=== PATIENT | male | born 1955 | race Caucasian/White ===

== ENCOUNTER 2018-07-29 13:17 | Outpatient (CLI) | payer BC, SELFPAY ==
[2018-07-29 14:37] LABS: ALT 43 U/L (12-78); AST 18 U/L (15-37); Albumin 3.9 g/dL (3.4-5.0); Alkaline Phosphatase 100 U/L (46-116); Anion Gap 8.7 mmol/L (3-11); BUN 29 mg/dL (7-18); Bilirubin, Total 0.3 mg/dL (0.2-1.0); CO2 29.3 mmol/L (21.0-32.0); CREATININE 1.04 mg/dL (0.70-1.30); Chloride 103 mmol/L (98-107); Glucose 92 mg/dL (70-100); Potassium 4.1 mmol/L (3.5-5.1); Sodium 141 mmol/L (136-145); Total Protein 7.1 g/dL (6.4-8.2)
== END 2018-07-29 13:37 ==
PROVIDERS: PCP Internal Medicine; Visit Provider Internal Medicine
DX: Z79.899 Other long term (current) drug therapy (principal)
CPT/HCPCS: 36415; 80053

== ENCOUNTER 2019-07-31 07:49 | Outpatient (CLI) | payer BC, SELFPAY ==
[2019-07-31 08:30] LABS: Abs Immature Grans 0.05 k/cumm (0.0-0.09); Absolute Basophil Count 0.04 k/cumm (0.0-0.2); Absolute Eosinophil Count 0.13 k/cumm (0.0-0.7); Absolute Lymphocyte Count 1.82 k/cumm (1.2-3.4); Absolute Neutrophil Count 4.01 k/cumm (1.2-6.7); Basophils % 0.6; HCT 45.3 % (40.0-50.0); HGB 15.3 g/dL (13.5-17.5); Immature Grans % 0.8; Lymphocytes % 27.4; Mean Corp. HGB Concentration 33.8 g/dL (32.0-36.0); Mean Corpuscular Hemoglobin 31.5 pg (27.0-33.0); Mean Corpuscular Volume 93.4 fL (80-95); Mean Platelet Volume 10.3 fL (8.0-11.0); Neutrophils % 60.2; Platelet Count 222 x1000/uL (130-400); RBC 4.85 m/cumm (4.50-6.00); RBC Distribution Width 12.9 % (11.8-14.1); White Blood Cell Count 6.65 k/cumm (4.4-10.8)
[2019-07-31 09:31] LABS: ALT 39 U/L (16-63); AST 16 U/L (15-37); Albumin 4.3 g/dL (3.4-5.0); Alkaline Phosphatase 77 U/L (46-116); Anion Gap 9.8 mmol/L (3-11); BUN 28 mg/dL (7-18); Bilirubin, Total 0.5 mg/dL (0.2-1.0); CO2 29.2 mmol/L (21.0-32.0); CREATININE 1.21 mg/dL (0.70-1.30); Calcium 9.3 mg/dL (8.5-10.1); Calculated LDL 116 mg/dL; Chloride 103 mmol/L (98-107); Cholesterol 188 mg/dL (50-200); Glucose 100 mg/dL (70-100); HDL Cholesterol 53 mg/dL (40-60); Potassium 4.6 mmol/L (3.5-5.1); Sodium 142 mmol/L (136-145); Total Protein 7.4 g/dL (6.4-8.2); Triglyceride 99 mg/dL (30-150)
== END 2019-07-31 08:09 ==
PROVIDERS: PCP Internal Medicine; Visit Provider Internal Medicine
DX: I10 Essential (primary) hypertension (principal); Z12.5 Encounter for screening for malignant neoplasm of prostate
CPT/HCPCS: 36415; 80053; 80061; 84154; 85025

== ENCOUNTER 2019-10-12 13:29 | Outpatient (CLI) | payer BC, SELFPAY ==
[2019-10-12 14:59] LABS: INR 2.7 (0.9-1.1); Prothrombin Time 26.1 sec (9.3-11.0)
== END 2019-10-12 13:49 ==
PROVIDERS: PCP Internal Medicine; Visit Provider Internal Medicine
DX: I48.21 Permanent atrial fibrillation (principal); Z79.01 Long term (current) use of anticoagulants
CPT/HCPCS: 36415; 85610

== ENCOUNTER 2020-07-15 15:30 | Outpatient (CLI) | payer BC, SELFPAY ==
--- NOTE | 2020-07-15 15:00 | DI.RAD_ITS ---
EXAM: XR KNEE RT 3V AP,LAT,ASHLEY CLINICAL HISTORY: knee pain TECHNIQUE: COMPARISON: CR XR KNEE LT 3V AP,LAT,ASHLEY from 07/15/2020 FINDINGS: Three views were obtained. There is severe narrowing of medial tibiofemoral cartilaginous joint spac e with mild varus angulation of the knee. Mild marginal osteophyte formation noted involving all 3 j oints of the knee. No other significant bony abnormality seen except for perhaps slight subchondral sclerosis of medial tibial plateau. IMPRESSION: DJD predominantly involving medial tibiofemoral joint. RADIATION DOSE DELIVERED: Total DLP
--- NOTE | 2020-07-15 15:00 | DI.RAD_ITS ---
EXAM: XR KNEE LT 3V AP,LAT,ASHLEY CLINICAL HISTORY: knee pain TECHNIQUE: COMPARISON: No exams were available for comparison FINDINGS: Three views were obtained. There is severe narrowing of the medial tibiofemoral cartilaginous joint space. There is mild varus angulation of the knee. There is mild marginal osteophyte formation invo lving all 3 joints of the knee. There is mild subchondral sclerosis of the medial femoral condyle and medial tibial plateau. IMPRESSION: DJD predominantly involving medial tibiofemoral joint. RADIATION DOSE DELIVERED: Total DLP
== END 2020-07-15 15:50 ==
PROVIDERS: PCP Internal Medicine; Referring Provider Internal Medicine; Visit Provider Student in an Organized Health Care Education/Training Program
DX: M17.0 Bilateral primary osteoarthritis of knee (principal)
CPT/HCPCS: 73562

== ENCOUNTER 2020-09-09 11:24 | Outpatient (CLI) | payer BC, SELFPAY ==
--- NOTE | 2020-09-09 08:15 | DI.RAD_ITS ---
EXAM: XR STANDING ALIGNMENT and XR knee LT 1 V CLINICAL HISTORY: TKA planning. TECHNIQUE: 2D digital imaging was performed. COMPARISON: CR XR KNEE RT 3V AP,LAT,ASHLEY from 07/15/2020 CR XR KNEE LT 3V AP,LAT,ASHLEY from 07/15/2020 FINDINGS: The hips are well maintained. The right knee shows moderate degenerative changes in the medial femor al tibial joint compartment with joint space narrowing and periarticular spurring. In the left knee there is moderate joint space narrowing and periarticular spurring in the medial joint compartment. The lateral joint compartment is well maintained. Periarticular spurring is seen at the posterior pa tella. There is a small joint effusion. The ankles are well maintained. The right lower extremity measures 91.8 cm. The left lower extremity measures 91.2 cm. IMPRESSION: Bilateral osteoarthritis of the knees. DATA REPOSITORY: RADIATION DOSE DELIVERED:
== END 2020-09-09 11:44 ==
PROVIDERS: PCP Internal Medicine; Visit Provider Physician Assistant
DX: M17.0 Bilateral primary osteoarthritis of knee (principal)
CPT/HCPCS: 73560; 77073

== ENCOUNTER 2020-09-19 02:53 | Outpatient (CLI) | payer BC, SELFPAY ==
[2020-09-21 13:57] LABS: COVID-19 RT-PCR UVMMC Result Negative (Negative)
== END 2020-09-19 03:13 ==
PROVIDERS: PCP Internal Medicine; Visit Provider Student in an Organized Health Care Education/Training Program
DX: Z11.59 Encounter for screening for other viral diseases (principal); Z01.818 Encounter for other preprocedural examination
CPT/HCPCS: U0003

== ENCOUNTER 2020-09-24 05:59 | Day surgery (SDC) | payer BC, MEDICARE, SELFPAY ==
[2020-09-24] VITALS (11 sets, daily range): BP systolic 83–158; BP diastolic 47–77; PULSE 58–92; RESP 14–19; TEMP 36.1–37.1; O2SAT 94–98
[2020-09-24] MEDS: Lactated Ringers 1,000 ML 80 ML IV ×2 (06:40→12:37)
[2020-09-24] MEDS: Acetaminophen 500 MG TAB 1000 MG PO ×2 (07:01→12:36)
[2020-09-24] MEDS: Gabapentin 300 MG CAP PO (07:01)
[2020-09-24] MEDS: Celecoxib 200 MG CAP 400 MG PO (07:01)
--- NOTE | 2020-09-24 07:32 | PDOC.DSDIS_ITS ---
Discharge Plan Disposition Patient Disposition: HOME Condition: Good Discharge Details Reason For Visit: Left Knee DJD Attending Provider: Liam Elena Primary Care Provider: David Wallace Home Meds and New Rx's Prescriptions: New aspirin 81 mg tablet,delayed release (DR/EC) 81 mg PO BID Qty: 60 RF: 0 acetaminophen 500 mg tablet 1,000 mg PO Q8H PRN (Reason: pain) Qty: 90 RF: 3 pantoprazole 40 mg tablet,delayed release (DR/EC) 40 mg PO DAILY Qty: 30 RF: 0 docusate sodium [Colace] 100 mg capsule 100 mg PO BID PRNQty: 10 RF: 0 gabapentin 300 mg capsule 300 mg PO QHS Qty: 7 RF: 0 oxycodone 5 mg tablet 5 mg PO Q4H Qty: 18 RF: 0 Continued hydrochlorothiazide 25 mg tablet 25 mg PO DAILY RF: 0 warfarin [Coumadin] 3 MG tablet 6.5 mg PO DAILY RF: 0 candesartan [Atacand] 16 MG tablet 16 mg PO DAILY RF: 0 diltiazem HCl [Cardizem] 60 MG tablet 300 mg PO DAILY RF: 0 potassium chloride 10 mEq Tablet Extended Release 10 meq PO DAILY RF: 0 cholecalciferol (vitamin D3) [Vitamin D3] 25 mcg (1,000 unit) Capsule 25 mcg PO DAILY RF: 0 zinc 50 mg Capsule 50 mg PO DAILY RF: 0 celecoxib [Celebrex] 200 mg capsule 200 mg PO BID Qty: 60 RF: 3 Discontinued aspirin [Aspir-81] 81 MG tablet,delayed release (DR/EC) 81 mg PO DAILY RF: 0 Discharge Instructions Additional Instructions: Total Knee Discharge Instructions Activity: The most important activity is to walk. You should try to take short walks a few times a day. It is important that when resting you work on keeping the knee straight. Avoid putting a pillow behind the knee as this will encourage flexion. Work on range of motion exercises as provided by Physical Therapy. - Start outpatient physical therapy within 2 weeks. - You should wear the CHEYANNE hose on both legs for 2 weeks. Dressing: Keep the surgical dressing in place for at least one week. After the first week it may be removed and replace with light gauze and tape or nothing. It may get wet after 3 days but avoid soaking the dressing. If it gets wet, just lightly pat dry. Medications: - You should take Tylenol and anti-inflammatory Celebrex as your primary pain control medications. - You have been prescribed a stronger pain medication Oxycodone for breakthrough pain, take as needed as prescribed. - You have also been prescribed a stomach acid reduction agent Pantoprozole to help reduce stomach acid and reflux. - You have Gabapentin to take at night for restlessness and nerve pain. - You will be taking Aspirin 81mg twice a day for DVT prevention unless instructed otherwise. - If you have constipation you should take Colace or Miralax (both [id number]). It takes most people 3-4 days to have a bowel movement. Follow-up: 2 weeks If you have any acute concerns or questions, please do not hesitate to contact the office at [phone]. You may contact Dr. Elena with any questions after hours through the hospital at [phone] or on his cell phone at [phone]. Referrals: Liam Elena MD [ [facility] STAFF PHYSICIAN] - Equipment/Supplies: Walker Activity:: Activity as Tolerated Diet:: As Tolerated Discharge Orders Discharge Orders: Discharge Order (Routine); Ordered 09/24/20 Ordered By: Liam Elena DS: Diagnosis Discharge Diagnosis (1) Left knee DJD: Status: Chronic
[2020-09-24] MEDS: ceFAZolin 3,000 MG in Normal Saline 100 ML 200 MG IVPB (07:43)
[2020-09-24] MEDS: Bupivacaine 0.25% Pres-Free 30 ML VIAL ×2 (08:10→08:13)
[2020-09-24] MEDS: Ketorolac 30 MG/ML VIAL (08:12)
[2020-09-24] MEDS: Normal Saline 50 ML (08:12)
--- NOTE | 2020-09-24 09:50 | ROE_ITS ---
Date of service: 09/24/20 Time of Service: 09:50 Operative Note Operative Note DATE OF PROCEDURE: 09/24/20 PRE-OP DIAGNOSIS: Left Knee Osteoarthritis POST-OP DIAGNOSIS: same PROCEDURE: Left Total Knee Replacement SURGEON: Liam Elena INNER TUBE TUBER MACHINE OPERATOR: Radha Somers ANESTHESIA: regional and spinal ESTIMATED BLOOD LOSS: 200 PATHOLOGY: none sent TOURNIQUET TIME: 0 COMPLICATIONS: None Patient was transported to: PACU Patient's condition: stable Implants: 1. Depuy Attune Cementless Cruciate Retaining Femoral Component, Size 6 2. Depuy Attune Cementless Rotating Platform Tibial Component, Size 6 3. Depuy Attune 6x8mm CR/RP Poly 4. Depuy Attune Patellar Component, Size 38mm Indications: I have seen Reza in clinic for symptoms of knee arthritis, confirmed with radiographic findings. Reza has exhausted nonoperative methods and was having significant limitations in daily function and desired better function and less pain. I discussed the technical details of a knee replacement. I explained the risks of the procedure to include, but not limited to, bleeding, infection, pain, stiffness, fracture, damage to nerves and vessels, damage to muscles and tendons, loosening, need for repeat procedure, blood clot and cardiopulmonary demise. Despite these risks, Reza elected to proceed. Findings: There was significant signs of arthritis throughout the knee. Procedure Description: Reza was greeted in the preoperative holding area where the correct side was identified and marked. The consent was reviewed with the patient and signed. The history and physical was updated. All questions were answered. Preoperative medications were administered: Acetaminophen 1000mg, Celebrex 400mg, and Gabapentin 300mg. An adductor canal block was then administered by the anesthesia team in the PACU. Reza was taken back to the operating room. A spinal anesthestic was then administered. The patient was placed into the supine position on the operating room table. A nonsterile tourniquet was placed high onto the leg but only used for cementing. Posts were placed for positioning during the procedure. All bony prominences were well padded. Prophylactic antibiotics in the form of Cefazolin were administered. 1g of Tranxemic Acid was given intravenously within 30 minutes of incision. The left leg was then prepped with Chloraprep and draped in a standard fashion with impervious stockinette. A second prep with Chloraprep was performed prior to application of Iodine impregnated skin protection. A timeout to confirm correct identity, side and site, procedure, al lergies, anesthesia, and medical concerns was performed. With the knee in some flexion, a midline incision was made overlying the knee. Full thickness skin flaps were raised once the extensor mechanism was encountered. These were raised medially and laterally. Any bleeding was controlled with electrocautery. Once the extensor mechanism was fully exposed, a medial parapatellar arthrotomy was performed in a flexed position. All bleeding from the arthrotomy and the geniculate arteries was coagulated. A medial subperiosteal peel was performed with electrocautery to the midcoronal plane. Due to the significant varus deformity the entire medial tibial plateau was exposed. The fat pad was removed while keeping the patellar tendon protected. The anterior distal femur synovium was removed for later visualization. The ACL and PCL were resected and the anterior horn of the lateral meniscus was transected. The knee was then flexed with the patella everted. Large osteophytes from the tibia were removed. Large osteophytes from the femur were removed. Using a step drill, and based on preoperative templating, the femoral canal was entered. This was done with a step drill without any difficulty. The intramedullary distal femoral cut guide was inserted, set to a 5 degree valgus cut and 9mm cut thickness. The distal femoral cut guide was then held in position and pinned. With the soft tissues protected, the distal cut was performed. This was passed over a few times to ensure a planar cut. I then turned attention to the tibia. The extramedullary guide was placed onto the leg. The distal aspect was slid medial to adjust for position of center of ankle and stay in line with shaft of the tibia. Approximately 3-5 degrees of posterior slope was kept in the proximal cutting guide. The center of the guide was aligned with the PCL. The stylus was used to assess cut thickness. The medial side, most involved side, was set for a 2mm cut. This was then held in position and pinned into place with 2 additional pins and a cross pin for stability. The medial and lateral collateral ligaments were protected and the cut was performed. With this completed, it was assessed and noted to be of appropriate dimensions. The guide was removed. A spacer block was inserted and the knee was brought into extension. The 7mm spacer block provided full extension, without hyperextension and with stability of both the medial and lateral collateral ligaments was assessed. The pins from the femur and the tibia were then removed. The distal femur was then sized. The anterior stylus was placed onto the lateral ridge of the anterior femur. This indicated a size 6 femur. The external rotation of the guide was adjusted to 3 degrees to match the epicondylar axis, perpendicular to Harwood?s line. The 4-in-1 cutting guide was the placed. The posterior medial femur cut was evaluated and appeared of good thickness. The spacer block was inserted underneath the cutting guide and stability was confirmed in 90 degrees of flexion. An juliana wing was used to confirm appropriate position of the anterior cut to avoid notching. This cutting guide was ensured to be flush on the cut surface and then pinned into place with headed pins. While protecting the soft tissues, quad tendon, and collateral ligaments, the anterior and posterior cuts were performed with a saw. The central two pins were removed and the posterior and anterior chamfers were cut next. The notch-cutting guide was placed. This was pinned to lateralize the femoral component as much as possible while keeping it flush on the cut surface. This was then pinned into position. A reciprocating saw was used to make the notch cut. A rasp smoothed the cut surfaces. The medial and lateral menisci were removed. A trial femoral component was then inserted, impacted down to the cut surfaces, and the lug holes were drilled. A provisional trial tibial component was placed and the knee was brought through range of motion. There was noted to be excellent extension and flexion. There was no significant instability. The polyethylene was trialed until there was good flexion and extension with e xcellent stability to the medial and lateral collaterals. The patella was tracking without thumbs. A size 8mm polyethylene component provided the best range of motion and stability with less than 2mm gapping with medial and lateral stress and full extension without significant hyperextension. The tibial cut surface was fully exposed. The tibia was then sized as a 6. The tibia had been previously marked during trialing to correspond to the center of the tibial component to help with rotation. The trial was aligned to this liliana, approximately rotated to the medial 1/3rd of the tibial tubercle. The trial was pinned into place. The tibia was prepared with a reamer and a keel punch and lug holes. The knee was then brought into extension and the patella was measured as 26mm. Using the patellar clamp and cut guide, this was resected to a flat surface with at least 13mm of thickness remaining. The size 38 patella fit the best. This was oriented and then clamped into position. The lugs were drilled. The trial components were removed. The final components were opened on the back table. The periosteal and capsular tissues, especially posteriorly, around the knee were then systematically injected with a periarticular cocktail consisting of 50cc 0.25% Marcaine, 30mg Ketorolac, 20cc of Exparal and 50cc of injectable saline. The knee was thoroughly irrigated with a pulse lavage and dried. Irrisept was also used to irrigate the tissues. On the back table, with the implants opened, the cement was mixed. One batche of high viscosity cement were prepared with vacuum assistance. After the cement was ready a small amount was placed on the cut surface of the patella and the patellar button was clamped into position and held. During this process attention was turned to the gutters of the knee and for all interfaces for any excess cement. While the cement was hardening, the cementless knee components were placed. Starting with the tibial component, the tibia was subluxed anteriorly and the lug holes of the component were lined up. The tibia was then impacted with an impactor and mallet until the tibial component was in contact with the tibia. The final polyethylene component was inserted. Then, the femoral component was inserted. The lug holes were aligned and the component was impacted into position. The lateral aspect of the femoral component sat up about 1-2mm. This was only on the distal aspect as both the anterior flange and anterior chamfer were in contact with the implant. A small amount of bone from the tibial cut was collected with a rongeur and utilizng a freer I was able to push this in. The knee was then irrigated with Irrisept chlorhexadine solution. This was allowed to sit in the knee for 3 minutes. After the cement had finally cured, approximately 15min, the clamp was removed from the patella and the knee was taken through range of motion. The patella was tracking with a no-thumbs technique. The capsule was then reapproximated with a No. 1 Vicryl at multiple locations. The capsule was finally closed with a No. 2 Stratafix, barbed suture. The second dosing of 1g TXA was started. Deep tissues were then reapproximated with 0 Vicryl and 2-0 Monocryl. The closure was tight and mulitple 2-0 sutures were utilized to reduce the skin edges. The skin was closed with a running 3-0 Monocryl in a subcuticular fashion. This was reinforced with skin glue. A Mepilex silver dressing was applied along with a [id number] LULU wrap. A CryoCuff was applied. Johanne was transferred to the hospital bed without diffic ulty an suffering no apparent complication. Reza has a good prognosis. Physical therapy will start today and without restrictions, weight-bearing as tolerated. Aspirin 81mg BID will be used for DVT prophylaxis.
[2020-09-24] MEDS: ceFAZolin 1 GM/50 ML BAG IVPB (12:36)
--- NOTE | 2020-09-24 12:59 | IN_ITS ---
Date of service: 09/24/20 Time of Service: 12:59 PT Notes Visit Reasons: Left Knee DJD Physical Therapy Inpatient Initial Evaluation Date: 09/24/2020 Referring Doctor: Liam Elena MD PT Orders: PT CONSULT: Status post Ortho surgery. Status post left TKA. Precautions: Fall. Standard. WBAT on left LE. Patient Profile/Admitting Diagnosis: Cr is a 64-year-old male with degenerative joint disease of the left knee and is status post left total knee arthroplasty on postoperative day 0. PMHX: Medical History Atrial fibrillation Degenerative joint disease of right knee Hypertension Left knee DJD RBBB (right bundle branch block) Surgical History ASD (atrial septal defect) (~1983) s/p repair of ASD Social History/Home Situation: Lives with in a private home with one half- step to get into the house. Independent with all aspects of ADLs prior to surgery. Has had no falls in the past 12 months. Equipment Owned/DME: [employer], F[facility], SPC, [facility] Subjective: Agreeable to PT consult. Denies pain in the left knee. Complained of stiffness in the left knee which resolved with movement and ambulation. Believes that if he overdoes the walking and exercises, he can get better faster. Objective: General Observation: Obese. Impulsive. Nurse Miley present throughout session. LULU wraps on left LE. Cryo/Cuff to left LE. Mental Status: Alert and oriented x4 Pain: Denies ROM: Right Upper Extremity: Shoulder Flexion WFL. Shoulder abduction WFL. Elbow flexion WFL. Wrist flexion WFL. Opening and closing of hand WFL. Left Upper Extremity: Shoulder Flexion WFL. Shoulder abduction WFL. Elbow flexion WFL. Wrist flexion WFL. Opening and closing of hand WFL. Right Lower Extremity: Hip flexion WFL. Hip abduction WFL. Knee flexion WFL. Ankle dorsiflexion WFL. Ankle plantarflexion WFL. Left Lower Extremity: Hip flexion WFL. Hip abduction WFL. Knee flexion 10 degrees to 95 degrees. Knee extension -10 degrees. Ankle dorsiflexion WFL. Ankle plantarflexion WFL. Strength: Right Upper Extremity: Shoulder flexors 5/5. Shoulder abductors 5/5. Elbow flexors 5/5. Elbow extensors 5/5. Pitching Coach strong. Left Upper Extremity: Shoulder flexors 5/5. Shoulder abductors 5/5. Elbow flexors 5/5. Elbow extensors 5/5. Pitching Coach strong. Right Lower Extremity: Hip flexors 5/5. Hip abductors 5/5. Knee flexors 5/5. Knee extensors 5/5. Ankle dorsiflexors 5/5. Ankle plantarflexors 5/5. Left Lower Extremity:Hip flexors 4/5. Hip abductors 5/5. Knee flexors 3-/5. Knee extensors 3-/5. Ankle dorsiflexors 5/5. Ankle plantarflexors 5/5. Sensation: Intact as to pain and pressure on bilateral lower extremities. Bed Mobility/Transfers: Supine to sit supervision Sit to stand standby assist Stand to sit standby assist Bed to chair standby assist Gait: Guided patient through level surface ambulation of 200 feet x 2 using the front wheeled walker with standby assist of PT and nurse Trent. Required moderate verbal cueing to avoid speed walking and reduce fall risk. Balance: Static Sitting: Normal Dynamic Sitting: Normal Static Standing: Fair Dynamic Standing: Fair Special Tests: Mobility Limitations Standardized Measure [facility] 6 clicks Basic Mobility Inpatient Short Form: Raw Score: 23 CMS Score: 11% deficit Informed Consent/Education: Patient instructed in purpose of PT consult. Packet containing TKA exercise protocol has been given to patient. Education and training on initial set of exercises that can be done at home has been completed with patient. Assessment: Reza requires the use of a front wheeled walker to maximize safety and reduce fall risk at home. He will have the support of his as he recovers. He will benefit from outpatient PT services in order to facilitate return to independent and unassisted community ambulation. Has good understanding of HEP given to him in a packet. Patient presents with clinical signs and symptoms consistent with current/admitting diagnoses that have resulted to mobility limitations, gait instability, generalized weakness, and impairment of motor control as demonstrated by the following impairment level findings: 1. Decreased strength to left knee major muscle groups 2. Impaired standing balance 3. Limitation of joint range of motion in left knee Impairments are contributing to the following functional limitations: 1. Inability to safely ambulate without assistive device 2. Increase completion time for mobility ADL performance 3. Increased fall risk Patient is assessed as a 63480 moderate complexity based on the following: History: 64-year-old male with impairment level findings, functional limitations, and past medical history as indicated above Examination: Demonstrable impairment in strength, balance, and mobility level with underlying impairments and functional limitations as documented above Presentation:Evolving Decision Makin moderate complexity Goals: N/A. PT evaluation and 1 treatment session only for functional mobility training using the front wheeled walker and for HEP instruction. Plan of Care/Treatment Plan: N/A. PT evaluation and 1 treatment session only for functional mobility training using the front wheeled walker and for HEP instruction. DISCHARGE RECOMMENDATIONS: Home when medically cleared by orthopedic surgeon. Will benefit from outpatient PT services in order to facilitate return to independent and unassisted community ambulation. TREATMENT CODE/TIME: 84770 x 30 minutes, 26971 x 32 minutes beginning at 12:59 AM. Thank you for the opportunity to participate in the care of this patient. Zuly Albarran PT, DPT, CLT [facility] [place], [place]
== END 2020-09-24 17:14 | disposition home or self-care (01) ==
PROVIDERS: PCP Internal Medicine; Visit Provider Student in an Organized Health Care Education/Training Program
PROC: (CPT 27447; principal; 2020-09-24 07:30)
DX: M17.12 Unilateral primary osteoarthritis, left knee (principal); M25.562 Pain in left knee; Z96.652 Presence of left artificial knee joint; G89.18 Other acute postprocedural pain; G47.33 Obstructive sleep apnea (adult) (pediatric); I10 Essential (primary) hypertension; I48.20 Chronic atrial fibrillation, unspecified; Z79.01 Long term (current) use of anticoagulants
CPT/HCPCS: 27447; C1776; 76942; 97110; 97116; 97162; 97530; J0690; J1100; J1885; J2250; J2370; J2405

== ENCOUNTER 2020-10-10 10:43 | Outpatient (CLI) | payer BC, MEDICARE, SELFPAY ==
--- NOTE | 2020-10-10 10:30 | DI.RAD_ITS ---
EXAM: XR STANDING ALIGNMENT and XR knee LT 1 V CLINICAL HISTORY: L TKR. TECHNIQUE: 2D digital imaging was performed. COMPARISON: CR XR STANDING ALIGNMENT from 09/09/2020 FINDINGS: There are mild degenerative changes of the hips bilaterally. Since the prior examination the patient has undergone a left total knee replacement. The orthopedic hardware appears in good position. The re is a small joint effusion. Mild soft tissue swelling is seen about the left knee. Degenerative c hanges are seen in the right knee with narrowing of the medial femoral tibial joint space. The ankle s are well maintained. The right lower extremity measures 92.5 cm. The left lower extremity measure s 91.3 cm. IMPRESSION: 1. Interval placement of a left total knee arthroplasty. 2. Degenerative changes of the right knee. DATA REPOSITORY: RADIATION DOSE DELIVERED:
== END 2020-10-10 11:03 ==
PROVIDERS: PCP Internal Medicine; Referring Provider Internal Medicine; Visit Provider Physician Assistant
DX: Z96.652 Presence of left artificial knee joint (principal); M17.11 Unilateral primary osteoarthritis, right knee; M25.462 Effusion, left knee
CPT/HCPCS: 73560; 77073

== ENCOUNTER 2020-11-11 12:58 | Emergency (ER) | payer BC, MEDICARE, SELFPAY ==
[2020-11-11 13:03] VITALS: BP 120/60; PULSE 84; RESP 20; TEMP 36.6; O2SAT 95
[2020-11-11] MEDS: diphenhydrAMINE 50 MG/ML VIAL IVP (14:24)
[2020-11-11 14:25] LABS: Abs Immature Grans 0.05 10^3/uL (0.0-0.06); Absolute Basophil Count 0.04 10^3/uL (0.0-0.2); Absolute Eosinophil Count 1.16 10^3/uL (0.0-0.7); Absolute Lymphocyte Count 1.81 10^3/uL (1.2-3.4); Absolute Monocyte Count 1.02 10^3/uL (0.1-0.8); Absolute Neutrophil Count 5.84 10^3/uL (1.2-6.7); Basophils % 0.4; Eosinophils % 11.7; HCT 41.7 % (40.0-50.0); HGB 14.1 g/dL (13.5-17.5); Immature Grans % 0.5; Lymphocytes % 18.2; MCHC 33.8 % (32.0-36.0); MCV 94.6 fL (80-95); MPV 10.1 fL (8.0-11.0); Monocytes % 10.3; Neutrophils % 58.9; Nucleated RBC 0 %; Platelet Count 259 10^3/uL (130-400); RBC 4.41 10^6/uL (4.36-5.78); RDW 12.7 % (11.8-14.1); RDW-SD 44.1 fL; WBC 9.92 10^3/uL (4.4-10.8)
[2020-11-11] MEDS: methylPREDNISolone SUCC 125 MG VIAL IVP (14:28)
[2020-11-11] MEDS: FAMOTIDINE 20 MG/50 ML BAG 200 MG IVPB (14:30)
[2020-11-11 14:36] LABS: INR 2.8 (0.9-1.1); Prothrombin Time 27.3 sec (9.3-11.0)
[2020-11-11 14:37] LABS: ALT 27 U/L (16-63); AST 13 U/L (15-37); Alkaline Phosphatase 69 U/L (46-116); Anion Gap 10.7 mmol/L (3-11); BUN 33 mg/dL (7-18); Bilirubin, Total 0.4 mg/dL (0.2-1.0); CO2 26.3 mmol/L (21.0-32.0); CREATININE 1.3 mg/dL (0.70-1.30); Chloride 103 mmol/L (98-107); Estimated GFR 55.23 (mL/min/1.73m2); Glucose 118 mg/dL (74-106); Potassium 3.7 mmol/L (3.5-5.1); Sodium 140 mmol/L (136-145); Total Protein 7.2 g/dL (6.4-8.2)
--- NOTE | 2020-11-11 15:03 | ED.GENADUL_ITS ---
Discharge Plan Disposition Patient Disposition: HOME Condition: Stable Discharge Details Clinical Impression: Rash Primary Care Provider: David Wallace ED Provider: Live Darling Home Meds and New Rx's Prescriptions: New methylprednisolone [Methylpred DP] 4 mg tablets,dose pack See Rx Instructions .ROUTE .COMPLEX Qty: 21 RF: 0 Continued hydroxyzine HCl 50 mg tablet 50 mg PO TID Qty: 15 RF: 0 hydrochlorothiazide 25 mg tablet 25 mg PO DAILY RF: 0 warfarin [Coumadin] 3 MG tablet 5 mg PO DAILY RF: 0 candesartan [Atacand] 16 MG tablet 32 mg PO DAILY RF: 0 diltiazem HCl [Cardizem] 60 MG tablet 300 mg PO DAILY RF: 0 aspirin 81 mg tablet,delayed release (DR/EC) 81 mg PO DAILY RF: 0 potassium chloride 10 mEq Tablet Extended Release 10 meq PO DAILY RF: 0 cholecalciferol (vitamin D3) [Vitamin D3] 25 mcg (1,000 unit) Capsule 25 mcg PO DAILY RF: 0 zinc 50 mg Capsule 50 mg PO DAILY RF: 0 acetaminophen 500 mg tablet 1,000 mg PO Q8H PRN (Reason: pain) Qty: 90 RF: 3 docusate sodium [Colace] 100 mg capsule 100 mg PO BID PRNQty: 10 RF: 0 celecoxib [Celebrex] 200 mg capsule 200 mg PO BID Qty: 60 RF: 3 Discharge Instructions Instructions: Acute Rash (ED) Additional Instructions: Laboratory values do not reveal any obvious emergent process. Please watch for new or worsening symptoms and return to the ER for any concerns. Medrol Dosepak as directed. Continue [id number] Benadryl and Zantac as directed for symptomatic control. I do recommend reaching out your primary care provider later today or tomorrow for reevaluation in the next 3-7 days. If symptoms are not improving then referral to dermatology and/or an supervisor water softener service may be indicated for her ongoing symptoms. Medical Decision Making This is a 64-year-old gentleman who reports a weeklong history of body wide rash, has been evaluated for this, placed on Keflex for potential infection, subsequently placed on Benadryl and hydroxyzine. No new obvious environmental exposures. Patient denies mouth or tongue swelling, difficulty speaking or breathing. Denies wheezing. He did have recent left knee surgery last month however reports that the pain in his left knee is improving. Has not taken any pain medications in the past 4 or 5 days. Patient does tell me that he was taking Tylenol daily but not taking it more than directed. Given his age, multiple comorbidities, will obtain IV access, CBC, CMP and evaluate his INR. Rash seems to be most likely consistent with urticaria without obvious known environmental exposure. We discussed our options. He will be given IV Benadryl, H2 cindy, and Solu-Medrol. Laboratory values are unremarkable for obvious emergent process. INR is 2.8, white count 9.92 renal function reveals a creatinine of 1.3 with a GFR of 55.23 Clinically patient appears well, nontoxic. No signs of septic joint. No signs of angioedema, respiratory compromise. He appears to have a diffusely pruritic urticarial-like rash. Laboratory values reveal no obvious emergent process. Patient treated with both H1 and H2 cindy as well as Solu-Medrol. Clinically he appears well, nontoxic. Patient does not appear significantly improved however he is requesting discharge. Patient will take [id number] H1 and H2 blockers and I will provide a prescription for Medrol Dosepak. We did discuss the importance of watching for new or worsening symptoms and return immediately to the ER. Otherwise he will reach out to his primary care provider, we did discuss that he has not improving with my therapy he may require outpatient referral to dermatology or an supervisor water softener service for further evaluation of his ongoing symptoms. Medical Records Medical records reviewed: Yes I reviewed the patient's medical records. Lab Data Lab results reviewed: Yes I reviewed the patient's lab results. Labs: Laboratory Tests Range/Units 11/11/20 11/11/20 11/11/20 14:15 14:15 14:15 WBC (4.4-10.8) 10^3/uL 9.92 RBC (4.36-5.78) 10^6/uL 4.41 Hgb (13.5-17.5) g/dL 14.1 Hct (40.0-50.0) % 41.7 MCV (80-95) fL 94.6 MCH (27.0-33.0) pg 32.0 MCHC (32.0-36.0) % 33.8 RDW (11.8-14.1) % 12.7 Plt Count (130-400) 10^3/uL 259 MPV (8.0-11.0) fL 10.1 Immature Gran % 0.5 Neutrophils % 58.9 Lymphocytes % 18.2 Monocytes % 10.3 Eosinophils % 11.7 Basophils % 0.4 Nucleated RBC % % 0 Absolute Neutrophils (1.2-6.7) 10^3/uL 5.84 Absolute Lymphocytes (1.2-3.4) 10^3/uL 1.81 Absolute Monocytes (0.1-0.8) 10^3/uL 1.02 H Absolute Eosinophils (0.0-0.7) 10^3/uL 1.16 H Absolute Basophils (0.0-0.2) 10^3/uL 0.04 PT (9.3-11.0) sec 27.3 H INR (0.9-1.1) 2.8 H Sodium (136-145) mmol/L 140 Potassium (3.5-5.1) mmol/L 3.7 Chloride (98-107) mmol/L 103 Carbon Dioxide (21.0-32.0) mmol/L 26.3 Anion Gap (3-11) mmol/L 10.7 BUN (7-18) mg/dL 33 H Creatinine (0.70-1.30) mg/dL 1.3 Estimated GFR/1.73 m2 (mL/min/1.73m2) 55.23 Glucose (74-106) mg/dL 118 H Calcium (8.5-10.1) mg/dL 9.0 Total Bilirubin (0.2-1.0) mg/dL 0.4 AST (15-37) U/L 13 L ALT (16-63) U/L 27 Alkaline Phosphatase (46-116) U/L 69 Total Protein (6.4-8.2) g/dL 7.2 Albumin (3.4-5.0) g/dL 4.0 HPI General Mode of arrival: ambulatory . Date/Time Provider Initiated Documentation: 11/11/20 13:09 . Limitations to Documentation: no limitations . Information obtained by: patient . HPI Narrative: This is a 64-year-old male, past medical history of A. fib, chronic anticoagulation, hypertension, total left knee replacement last month. He states that he has had difficulty controlling his pain, as changed from Vicodin to Dilaudid. Has also been using [id number] Tylenol. He developed a rash that he states was initially around his left leg and now subsequently across his entire body. It is diffusely pruritic. There are no obvious new environmental exposures. She denies recent illness or trauma. He has been followed by his orthopedic provider who recommended initiating Benadryl and hydroxyzine, patient took several doses of each and reported no significant improvement of his symptoms. Was also placed on oral Keflex for potential early cellulitis. Patient denies fever, mouth swelling, throat swelling, wheezing, chest pain, shortness of breath, difficulty speaking or breathing, abdominal pain, nausea, vomiting, numbness, tingling, weakness, joint pain other than his left knee. He does report that he has not taken any of his pain medications and 4 or 5 days and that overall his knee pain is improving. He has never had an allergic reaction like this in the past. Related Data Home Medications Medication Instructions Recorded Confirmed candesartan [Atacand] 32 mg PO DAILY 01/03/14 10/10/20 diltiazem HCl [Cardizem] 300 mg PO DAILY 01/03/14 11/11/20 warfarin [Coumadin] 5 mg PO DAILY 01/03/14 10/10/20 hydrochlorothiazide 25 mg tablet 25 mg PO DAILY 07/15/20 11/11/20 acetaminophen 1,000 mg PO Q8H PRN #90 tab 09/24/20 11/11/20 celecoxib [Celebrex] 200 mg PO BID #60 cap 09/24/20 11/11/20 cholecalciferol (vitamin D3) 25 mcg PO DAILY 09/24/20 11/11/20 [Vitamin D3] docusate sodium [Colace] 100 mg PO BID PRN #10 cap 09/24/20 11/11/20 potassium chloride 10 meq PO DAILY 09/24/20 11/11/20 zinc 50 mg PO DAILY 09/24/20 11/11/20 hydroxyzine HCl 50 mg tablet 50 mg PO TID #15 tab 11/09/20 11/11/20 aspirin 81 mg PO DAILY 11/11/20 11/11/20 methylprednisolone [Methylpred DP] See Rx Instructions .ROUTE 11/11/20 .COMPLEX #21 dose pk Previous Rx's Medication Instructions Recorded acetaminophen 1,000 mg PO Q8H PRN #90 tab 09/24/20 celecoxib [Celebrex] 200 mg PO BID #60 cap 09/24/20 docusate sodium [Colace] 100 mg PO BID PRN #10 cap 09/24/20 hydroxyzine HCl 50 mg tablet 50 mg PO TID #15 tab 11/09/20 methylprednisolone [Methylpred DP] See Rx Instructions .ROUTE 11/11/20 .COMPLEX #21 dose pk Allergies Allergy/AdvReac Type Severity Reaction Status Date / Time No Known Allergies Allergy Unverified 11/11/20 13:09 General Stated Complaint: RashLesion JEFF: 3 Review of Systems Constitutional Constitutional: Denies fatigue, Denies fever(s), Denies headache(s) and Denies weakness ENT Ears, Nose, Mouth, and Throat: Denies headache(s) and Denies throat swelling Cardiovascular Cardiovascular: Denies chest pain and Denies dyspnea Respiratory Respiratory: Denies cough and Denies dyspnea Gastrointestinal Gastrointestinal: Denies abdominal pain, Denies nausea and Denies vomiting Musculoskeletal Musculoskeletal: Reports arthralgias, Denies numbness, Reports stiffness and Denies tingling Integumentary/Breasts Skin/Breast: Reports rash Neurologic Neurologic: Denies headache(s), Denies numbness, Denies tingling and Denies weakness Endocrine Endocrine: Denies fatigue Hematologic/Lymphatic Hematologic/Lymphatic: Reports easy bleeding and Reports easy bruising Allergic/Immunologic Allergic/Immunologic: Denies throat swelling [facility] Medical History Atrial fibrillation Degenerative joint disease of right knee Hypertension Left knee DJD ELIAS on CPAP RBBB (right bundle branch block) Surgical History ASD (atrial septal defect) (~1983) s/p repair of ASD History of colonoscopy History of total left knee replacement (TKR) (09/24/20) Social History Smoking/Tobacco Use Status: Former Tobacco Use Quit Date: 09/20/89 Smoking risk assessment performed?: Yes Alcohol Intake: current Alcohol Intake frequency: holidays/special occasions only Drug use: Never Substance use type: does not use Do you feel safe at home: Yes Do you feel safe in your relationship?: Yes Exam Const General: cooperative, healthy appearing, comfortable and no acute distress Orientation: alert, awake and oriented x3 [facility] Head: normal to inspection, normocephalic and atraumatic Face and sinus: normal facial exam Mouth: moist mucous membranes Throat: posterior oropharynx normal Eyes General: appearance normal, both eyes and all related structures Conjunctivae: conjunctivae normal Sclera: sclerae normal Neck Neck: normal visual inspection, full ROM, trachea midline and supple Resp Effort & Inspection: normal respiratory effort and able to speak in complete sentences Auscultation: clear to auscultation bilaterally Cardio Rate: regular rate Rhythm: regular rhythm GI Palpation: soft and nontender Skin Rashes: rashes noted Other: Patient has a diffuse rash that seems to spare the feet, face, palms. It is in the highest concentration across his chest and abdomen but is present on his back, all 4 extremities. There is no tenderness, warmth, excoriations. There is no induration or fluctuance. The rash is slightly papular in nature, easily blanchable. There is no obvious signs of infection over his left knee surgical incision. The rash is not consistent with a petechiae rash. Neuro General: patient alert, patient awake, moves all extremities and no focal motor deficits Cognition: normal cognition Speech: speech normal Gait: antalgic Motor: muscle tone normal throughout Sensory Exam: no sensory deficits noted Extrem General: capillary refill normal Right upper extremity: full ROM and normal capillary refill Left upper extremity: full ROM and normal capillary refill Right lower extremity: normal to inspection, full ROM and normal capillary refill Left lower extremity: normal capillary refill Other: Left knee, full extension, limited flexion. There is a well-healing surgical incision, no signs of warmth, tenderness, drainage, infection. Neuro, vascular, tendon intact. Psych Appearance: grossly normal Mental Status: mental status grossly normal Course Vital Signs Vital signs: Vital Signs Temperature 36.6 C 11/11/20 13:03 Pulse 84 11/11/20 13:03 Respiratory Rate 20 11/11/20 13:03 Blood Pressure 120/60 11/11/20 13:03 Pulse Oximetry 95 11/11/20 13:03 Temperature 36.6 C 11/11/20 13:03 Temperature Source Temporal Artery Scan 11/11/20 13:03 Pulse 84 11/11/20 13:03 Respiratory Rate 20 11/11/20 13:03 Respiratory Effort Non-Labored 11/11/20 13:11 Blood Pressure 120/60 11/11/20 13:03 Blood Pressure Position Sitting 11/11/20 13:03 Pulse Oximetry 95 11/11/20 13:03 Oxygen Delivery Method Room Air 11/11/20 13:03 Oxygen Flow Rate 0 11/11/20 13:03 Pain Level 2 11/11/20 13:03 Lab/Test Results Lab/Test Results: Laboratory Tests Range/Units 11/11/20 11/11/20 11/11/20 14:15 14:15 14:15 WBC (4.4-10.8) 10^3/uL 9.92 RBC (4.36-5.78) 10^6/uL 4.41 Hgb (13.5-17.5) g/dL 14.1 Hct (40.0-50.0) % 41.7 MCV (80-95) fL 94.6 MCH (27.0-33.0) pg 32.0 MCHC (32.0-36.0) % 33.8 RDW (11.8-14.1) % 12.7 Plt Count (130-400) 10^3/uL 259 MPV (8.0-11.0) fL 10.1 Immature Gran % 0.5 Neutrophils % 58.9 Lymphocytes % 18.2 Monocytes % 10.3 Eosinophils % 11.7 Basophils % 0.4 Nucleated RBC % % 0 Absolute Neutrophils (1.2-6.7) 10^3/uL 5.84 Absolute Lymphocytes (1.2-3.4) 10^3/uL 1.81 Absolute Monocytes (0.1-0.8) 10^3/uL 1.02 H Absolute Eosinophils (0.0-0.7) 10^3/uL 1.16 H Absolute Basophils (0.0-0.2) 10^3/uL 0.04 PT (9.3-11.0) sec 27.3 H INR (0.9-1.1) 2.8 H Sodium (136-145) mmol/L 140 Potassium (3.5-5.1) mmol/L 3.7 Chloride (98-107) mmol/L 103 Carbon Dioxide (21.0-32.0) mmol/L 26.3 Anion Gap (3-11) mmol/L 10.7 BUN (7-18) mg/dL 33 H Creatinine (0.70-1.30) mg/dL 1.3 Estimated GFR/1.73 m2 (mL/min/1.73m2) 55.23 Glucose (74-106) mg/dL 118 H Calcium (8.5-10.1) mg/dL 9.0 Total Bilirubin (0.2-1.0) mg/dL 0.4 AST (15-37) U/L 13 L ALT (16-63) U/L 27 Alkaline Phosphatase (46-116) U/L 69 Total Protein (6.4-8.2) g/dL 7.2 Albumin (3.4-5.0) g/dL 4.0
[2020-11-11 15:07] VITALS: BP 128/61; PULSE 72; RESP 18; TEMP 36.6; O2SAT 98
== END 2020-11-11 15:27 | disposition home or self-care (01) ==
PROVIDERS: Emergency Provider Physician Assistant; PCP Internal Medicine
DX: R21 Rash and other nonspecific skin eruption (principal); I48.91 Unspecified atrial fibrillation; I10 Essential (primary) hypertension; Z79.01 Long term (current) use of anticoagulants
CPT/HCPCS: 80053; 96365; 96375; 99284; 85025; 85610; 99283; J1200; J2930

== ENCOUNTER 2021-01-18 17:50 | Emergency (ER) | payer BC, MEDICARE, SELFPAY ==
[2021-01-18] VITALS (22 sets, daily range): BP systolic 127–169; BP diastolic 69–86; PULSE 51–81; RESP 7–17; TEMP 36.5; O2SAT 96–98
--- NOTE | 2021-01-18 18:00 | RT.EKG_ITS ---
APPROVED REPORT Exam: Resting ECG Patient Location: E HR:70 bpm ECG Measurements Heart Rate 70 AXIS [place] [id number] P [id number] QRSd 128 QRS 82 QT 436 T 47 QTc 471 Conclusion Atrial fibrillation...V-rate 55- 89, irreg A-activity Nonspecific intraventricular conduction delay...QRSd >115mS, not LBBB/RBBB
--- NOTE | 2021-01-18 18:00 | DI.CT_ITS ---
Exam(s) CT HEAD WO EXAM: CT HEAD WO CLINICAL HISTORY: Headache blurry vision. TECHNIQUE: Imaging Protocol: Axial computed tomography images with coronal and sagittal reformatted images were created and reviewed COMPARISON: No exams were available for comparison FINDINGS: Ventricles and Extra axial spaces: Please see below. Hemorrhage: The right convexity hemorrhage present. Both acute and subacute blood products are prese nt. There is a maximum thickness of subdural blood of 1.5 cm. There is a face mint of the sulci wit h a qmbfa-[id number] midline shift of 1 cm. No subarachnoid hemorrhage is seen. There is a face mint o f the anterior and occipital horns of the right lateral ventricle. There is also mass effect on the 3rd ventricle. Cerebral parenchyma: No acute territorial infarct is seen. Midline shift: None. Brainstem/Cerebellum: Normal. Calvarium: Normal. Visualized Paranasal sinuses/Mastoids: Clear. Soft Tissues: Unremarkable. IMPRESSION: There is an acute and subacute right convexity subdural hematoma with significant sulcal effacement a nd a right to left midline shift of 10 mm.Maximal thickness of the subdural blood is 1.5 cm. Results of this exam have been verbally communicated to Arely Temple on 01/18/2021. RADIATION DOSE DELIVERED: 1,000.86mGy.cm Total DLP DATA REPOSITORY: All CT scans at this facility are submitted to the National Radiology Data Registry (NRDR) Dose Index Registry (DIR) with the [employer] ([employer]). RADIATION OPTIMIZATION: All CT scans at this facility use at least one of these dose optimization te chniques: automated exposure control; mA and/or kV adjustment per patient size (includes targeted exa ms where dose is matched to clinical indication); or iterative reconstruction.
--- NOTE | 2021-01-18 18:02 | W.ED.GENAD ---
Discharge Plan Discharge Details Chief Complaint: Headache Primary Care Provider: David Wallace ED Provider: Arely Temple Home Meds and New Rx's Prescriptions: No Action hydroxyzine HCl 50 mg tablet 50 mg PO TID Qty: 15 RF: 0 hydrochlorothiazide 25 mg tablet 25 mg PO DAILY RF: 0 warfarin [Coumadin] 3 MG tablet 5 mg PO DAILY RF: 0 candesartan [Atacand] 16 MG tablet 32 mg PO DAILY RF: 0 diltiazem HCl [Cardizem] 60 MG tablet 300 mg PO DAILY RF: 0 aspirin 81 mg tablet,delayed release (DR/EC) 81 mg PO DAILY RF: 0 methylprednisolone [Methylpred DP] 4 mg tablets,dose pack See Rx Instructions .ROUTE .COMPLEX Qty: 21 RF: 0 potassium chloride 10 mEq Tablet Extended Release 10 meq PO DAILY RF: 0 cholecalciferol (vitamin D3) [Vitamin D3] 25 mcg (1,000 unit) Capsule 25 mcg PO DAILY RF: 0 zinc 50 mg Capsule 50 mg PO DAILY RF: 0 acetaminophen 500 mg tablet 1,000 mg PO Q8H PRN (Reason: pain) Qty: 90 RF: 3 Medical Decision Making 65-year-old male presents to the ER chief complaint of headache to the top of his head x1 week. He reports headache gets worse with positional changes such as standing up. Associated with dizziness, blurry vision. He denies any recent trauma or head injuries. Denies any chest pain, shortness of breath, fever nausea vomiting diarrhea. Does have a past medical history of atrial fibrillation right bundle branch block hypertension, total knee replacement on the left and degenerative joint disease of his right knee. Reports taking Tylenol at 3:00 prior to arrival. He does take warfarin daily. He is alert and oriented x4 upon initial exam no focal neuro deficits noted CBC is largely unremarkable platelets are 256 no leukocytosis, PT is 24.8 INR 2.5, sodium 141 potassium 3.6 anion gap 11.4 BUN 19 creatinine 1.1 GFR greater than 60 glucose 115. 1939: Called to for CT results with Dr. Blanco, Positive bleeding noted on CT scan 1944: Spoke with Dr. Kwong with [facility] who confirms acute on chronic Subdural hematoma with a right to left shift of 10 mm. Exam: CT Head Without Contrast Exam date and time: 01/18/2021 6:02 PM Age: 65 years old Clinical indication: Pain; Headache not specified; Patient HX: Headache, blurry vision TECHNIQUE: Imaging protocol: Computed tomography of the head without contrast. Other technique: STROKE PROTOCOL was implemented. COMPARISON: No relevant prior studies available. FINDINGS: Brain: High density blood along the right parietal convexity with significant mass effect on the right parietal and frontal lobe gyri. Sulcal effacement. Right to left midline shift of 10 mm. The thickest portions of subdural blood is 1.5 cm on series 3, image 40. High density blood also seen posteriorly with mild mass effect on the right occipital lobe with lower density subacute subdural blood around the right temporal lobe. No hemorrhage in the left hemisphere or the cerebellum. No subarachnoid hemorrhage around the basilar cisterns. No acute subarachnoid hemorrhage in the ventricles. No intracranial component of hemorrhage. Cerebral ventricles: Mild effacement of the posterior horn and anterior horn the right lateral ventricle. Mass effect on the 3rd ventricle. Bones/joints: Unremarkable. No acute fracture. Paranasal sinuses: Visualized sinuses are unremarkable. No fluid levels. Mastoid air cells: Visualized mastoid air cells are well aerated. Soft tissues: Unremarkable. IMPRESSION: Acute and subacute right hemispheric subdural hematomas with significant mass effect on the right cerebral hemisphere and right to left midline shift by 10 mm. No intracranial or subarachnoid hemorrhage. ASSESSMENT: ASPECTS ([place] Stroke Program Early CT Score) is 10. THIS REPORT CONTAINS FINDINGS THAT MAY BE CRITICAL TO PATIENT CARE. The study was personally discussed on the telephone with ARELY MAYORGA on 01/18/2021 7:47 PM EDT. The results were understood and acknowledged. Additional history provided: 6 days of symptoms. On Coumadin anticoagulation. Thank you for allowing us to participate in the care of your patient. Dictated and Authenticated by: Marcus Kwong MD 1947: Call made to [facility] for Neurosurgery consult and possible transfer. Discussed CT results with patient who verbalizes understanding. At this time he states his headache is somewhat better does not have any blurred at this time. Patient's room dark and he is on the sample stitcher, head of bed is at 30 degrees. 2018: Spoke with Dr. Edwards with neurosurgery at [facility] he was able to personally review the CT images I did discuss patient case and details with him he recommends 1 g of Keppra IV and nicardipine drip to titrate in route to keep systolic blood pressure less than 140 he does agree with the Kcentra and vitamin K to be given. He does agree to accept patient to the ER also spoke with Dr. Gab GONG MD, discussed patient case and details verbalized understanding. EMS transport is being arranged at this time. 2109: Spoke with Dr. Edwards regarding nicardipine drip due to patient's blood pressure 108/67 at this time and also the paramedics with [facility] cannot manage a nicardipine drip in route. He agrees that it is reasonable to hold the nicardipine drip at this time. Kcentra and Keppra are done infusing. Patient has a gotten 10 mg vitamin K p.o. and sumatriptan 650 mg PO. Informed by staff climate scientist that patient has right upper extremity resting tremor which was not present earlier. 2148: When questioned about tremor, this is at patient's baseline and has had this intermittently in past. Pt is c/o LOGAN, remains neurologically intact, EMS here for transfer. HPI General Mode of arrival: ambulatory. Date/Time Provider Initiated Documentation: 01/18/21 17:51. Limitations to Documentation: no limitations. Information obtained by: patient. HPI Narrative: 65-year-old male presents to the ER chief complaint of headache to the top of his head x1 week. He reports headache gets worse with positional changes such as standing up. Associated with dizziness, blurry vision. He denies any recent trauma or head injuries. Denies any chest pain, shortness of breath, fever nausea vomiting diarrhea. Does have a past medical history of atrial fibrillation right bundle branch block hypertension, total knee replacement on the left and degenerative joint disease of his right knee. Reports taking Tylenol at 3:00 prior to arrival. He does take warfarin daily. He is alert and oriented x4 upon initial exam no focal neuro deficits noted Related Data Home Medications Medication Instructions Recorded Confirmed candesartan [Atacand] 32 mg PO DAILY 01/03/14 10/10/20 diltiazem HCl [Cardizem] 300 mg PO DAILY 01/03/14 11/11/20 warfarin [Coumadin] 5 mg PO DAILY 01/03/14 10/10/20 hydrochlorothiazide 25 mg tablet 25 mg PO DAILY 07/15/20 11/11/20 acetaminophen 1,000 mg PO Q8H PRN #90 tab 09/24/20 11/11/20 cholecalciferol (vitamin D3) 25 mcg PO DAILY 09/24/20 11/11/20 [Vitamin D3] potassium chloride 10 meq PO DAILY 09/24/20 11/11/20 zinc 50 mg PO DAILY 09/24/20 11/11/20 hydroxyzine HCl 50 mg tablet 50 mg PO TID #15 tab 11/09/20 11/11/20 aspirin 81 mg PO DAILY 11/11/20 11/11/20 methylprednisolone [Methylpred DP] See Rx Instructions .ROUTE 11/11/20 .COMPLEX #21 dose pk Previous Rx's Medication Instructions Recorded acetaminophen 1,000 mg PO Q8H PRN #90 tab 09/24/20 hydroxyzine HCl 50 mg tablet 50 mg PO TID #15 tab 11/09/20 methylprednisolone [Methylpred DP] See Rx Instructions .ROUTE 11/11/20 .COMPLEX #21 dose pk Allergies Allergy/AdvReac Type Severity Reaction Status Date / Time No Known Allergies Allergy Unverified 01/18/21 17:57 General Stated Complaint: Headache JEFF: 2 Review of Systems Narrative: Constitutional: Negative for weight loss, alert and oriented, well groomed, normal body habitus, appears comfortable. HEENT: Denies trauma, nasal discharge, sore throat, trouble swallowing. Positive headach he describes as the top of head, x6 days denies any falls or trauma. Chest: Denies chest pain, palpitations, irregular rhythm, hypertension. Respiratory: Denies Shortness of breath, cough, hemoptysis. GI: Denies abdominal pain, nausea, vomiting, diarrhea, constipation. : Denies dysuria, hematuria, flank pain, rectal bleeding. Neuro: Denies weakness, syncope,or facial numbness. Reports headache with increased pain upon standing, associated with nausea dizziness and blurry vision has been taking Tylenol at home for pain. Hematologic: Denies easy bruising, intolerance to heat or cold, hair loss. [facility] Medical History (Updated 12/19/20 @ 13:59 by Aggie Cabrales) Atrial fibrillation Degenerative joint disease of right knee Hypertension Left knee DJD s/p left TKA ELIAS on CPAP RBBB (right bundle branch block) Surgical History ASD (atrial septal defect) (~1983) s/p repair of ASD History of colonoscopy History of total left knee replacement (TKR) (09/24/20) Social History Smoking/Tobacco Use Status: Former Tobacco Use Quit Date: 09/20/89 Smoking risk assessment performed?: Yes Alcohol Intake: current Alcohol Intake frequency: holidays/special occasions only Drug use: Never Substance use type: does not use Do you feel safe at home: Yes Do you feel safe in your relationship?: Yes Exam Narrative Exam Narrative: Constitutional: Alert and oriented x3. Appears stated age. Normal body habitus. Head: Normocephalic, no trauma. Eyes: Pupils PERRLA, Red reflex noted, EOM's intact. No nystagmus. Eyelids symmetrical without lesions, discharge, or swelling. ENT: Bilateral TM's WNL, External ear normal to inspection, no mastoid TTP, swelling, or erythema, Nasal turbinates WNL, no nasal discharge. Normal dentition, Posterior pharynx WNL, no exudate. Chest: RRR, Normal S1, S2, distal pulses intact. Resp: Lungs clear to auscultation bilaterally, no wheezes, rales, or rhonchi. Musculoskeletal: Normal gait, 5/5 strength to all four extremities. Skin: No suspicious rashes or lesions. Capillary refill less than 2 sec. Neurologic: Cranial nerves II-XII intact. Alert and oriented x 3. No pronator drift in arms or legs intact dorsal pedal flexion and extension conservation science teacher are equal upper extremities bilaterally. No focal neuro deficits Hematologic/Lymphatic: No ecchymosis, no lymphadenopathy. Course Vital Signs Vital signs: Vital Signs Temperature 36.5 C 01/18/21 17:54 Pulse 81 01/18/21 17:54 Respiratory Rate 16 01/18/21 17:54 Blood Pressure 169/84 H 01/18/21 17:54 Pulse Oximetry 97 01/18/21 17:54 Temperature 36.5 C 01/18/21 17:54 Temperature Source Skin 01/18/21 17:54 Pulse 81 01/18/21 17:54 Respiratory Rate 16 01/18/21 17:54 Respiratory Effort 01/18/21 17:59 Blood Pressure 169/84 H 01/18/21 17:54 Blood Pressure Position Sitting 01/18/21 17:54 Pulse Oximetry 97 01/18/21 17:54 Oxygen Delivery Method Room Air 01/18/21 17:54 Oxygen Flow Rate 0 01/18/21 17:54 Pain Level 9 01/18/21 17:54
[2021-01-18 18:17] LABS: Abs Immature Grans 0.05 10^3/uL (0.0-0.06); Absolute Basophil Count 0.03 10^3/uL (0.0-0.2); Absolute Eosinophil Count 0.26 10^3/uL (0.0-0.7); Absolute Lymphocyte Count 2.13 10^3/uL (1.2-3.4); Absolute Monocyte Count 0.94 10^3/uL (0.1-0.8); Basophils % 0.3; Eosinophils % 2.5; HCT 43.7 % (40.0-50.0); HGB 14.9 g/dL (13.5-17.5); Immature Grans % 0.5; Lymphocytes % 20.1; MCH 31.7 pg (27.0-33.0); MCHC 34.1 % (32.0-36.0); MPV 10.2 fL (8.0-11.0); Monocytes % 8.9; Neutrophils % 67.7; Nucleated RBC 0 %; Platelet Count 256 10^3/uL (130-400); RDW 11.9 % (11.8-14.1); RDW-SD 41.1 fL; WBC 10.61 10^3/uL (4.4-10.8)
[2021-01-18 18:28] LABS: ALT 28 U/L (16-63); AST 14 U/L (15-37); Albumin 4.1 g/dL (3.4-5.0); Alkaline Phosphatase 96 U/L (46-116); Anion Gap 11.4 mmol/L (3-11); BUN 19 mg/dL (7-18); Bilirubin, Total 0.5 mg/dL (0.2-1.0); CO2 26.6 mmol/L (21.0-32.0); CREATININE 1.1 mg/dL (0.70-1.30); Calcium 9.4 mg/dL (8.5-10.1); Chloride 103 mmol/L (98-107); Glucose 115 mg/dL (74-106); Potassium 3.6 mmol/L (3.5-5.1); Sodium 141 mmol/L (136-145); Total Protein 7.8 g/dL (6.4-8.2)
[2021-01-18] MEDS: Normal Saline 1,000 ML 1000 ML IV (18:31)
[2021-01-18 18:37] LABS: INR 2.5 (0.9-1.1); Prothrombin Time 24.8 sec (9.3-11.0)
[2021-01-18] MEDS: Ondansetron 4 MG/2 ML VIAL IVP (19:23)
[2021-01-18] MEDS: Normal Saline - Diluent 50 ML VIAL IV (19:26)
--- NOTE | 2021-01-18 19:49 | DI.[facility]_ITS ---
PROCEDURE INFORMATION: Exam: CT Head Without Contrast Exam date and time: 01/18/2021 6:02 PM Age: 65 years old Clinical indication: Pain; Headache not specified; Patient HX: Headache, blurry vision TECHNIQUE: Imaging protocol: Computed tomography of the head without contrast. Other technique: STROKE PROTOCOL was implemented. COMPARISON: No relevant prior studies available. FINDINGS: Brain: High density blood along the right parietal convexity with significant mass effect on the right parietal and frontal lobe gyri. Sulcal effacement. Right to left midline shift of 10 mm. The thickest portions of subdural blood is 1.5 cm on series 3, image 40. High density blood also seen posteriorly with mild mass effect on the right occipital lobe with lower density subacute subdural blood around the right temporal lobe. No hemorrhage in the left hemisphere or the cerebellum. No subarachnoid hemorrhage around the basilar cisterns. No acute subarachnoid hemorrhage in the ventricles. No intracranial component of hemorrhage. Cerebral ventricles: Mild effacement of the posterior horn and anterior horn the right lateral ventricle. Mass effect on the 3rd ventricle. Bones/joints: Unremarkable. No acute fracture. Paranasal sinuses: Visualized sinuses are unremarkable. No fluid levels. Mastoid air cells: Visualized mastoid air cells are well aerated. Soft tissues: Unremarkable. IMPRESSION: Acute and subacute right hemispheric subdural hematomas with significant mass effect on the right cerebral hemisphere and right to left midline shift by 10 mm. No intracranial or subarachnoid hemorrhage. ASSESSMENT: ASPECTS ([place] Stroke Program Early CT Score) is 10. THIS REPORT CONTAINS FINDINGS THAT MAY BE CRITICAL TO PATIENT CARE. The study was personally discussed on the telephone with CHEYANNE MAYORGA on 01/18/2021 7:47 PM EDT. The results were understood and acknowledged. Additional history provided: 6 days of symptoms. On Coumadin anticoagulation. Dictated and Authenticated by: Marcus Kwong MD. Ordering:MARY KATE Mcgee MD
[2021-01-18] MEDS: Phytonadione 5 MG TABLET 10 MG PO (20:56)
[2021-01-18] MEDS: levETIRAcetam 1,000 MG in Normal Saline 100 ML 400 MG IVPB (21:09)
[2021-01-18] MEDS: Acetaminophen 325 MG TAB 650 MG PO (21:22)
[2021-01-18 22:03] LABS: COVID-19 PCR Negative (Negative)
--- NOTE | 2021-01-22 10:06 | W.ED.FU ---
Date of service: 01/18/21 Time of Service: 10:06 Follow Up Plan: Addendum: I spent greater than 35 minutes addressing this patient's acute life threatening illness. This time was spent engaged in actions directly related to the patient's care. Failure to initiate these interventions would have likely resulted in clinically significant or life threatening deterioration in the patients condition.
== END 2021-01-18 21:55 ==
PROVIDERS: Emergency Provider Registered Nurse Emergency; PCP Internal Medicine
DX: I62.01 Nontraumatic acute subdural hemorrhage (principal); R42 Dizziness and giddiness; H53.8 Other visual disturbances; Z03.818 Encounter for observation for suspected exposure to other biological agents ruled out
CPT/HCPCS: 80053; 87635; 93005; 96361; 96365; 96375; 99291; 70450; 85025; 85610; 93010; J1953; J2405; J3490

== ENCOUNTER 2021-03-20 02:37 | Outpatient (CLI) | payer BC, MEDICARE, SELFPAY ==
--- NOTE | 2021-03-20 08:45 | DI.NM_ITS ---
APPROVED REPORT Exam: Pharmacologic Patient Location: Out-Patient Room/Bed: Stress Nurse: Gladis Suresh, RN; Jeremías Singh RN Ordering Provider:CHACHA HARPER, Contact Number: [phone] BMI: 39.86 Baseline Rhythm: Atrial Fibrillation Comment: RBBB, rare PVC Indications: Dyspnea Medical History Medical History: Afib, RBBB, HTN, ELIAS on CPAP Cardiac Medications: Diltiazem, HCTZ, candesartan, potassium chloride, elequis Allergies: NKA Cardiac Risk Factors: Ffamily Hx, HTN, former smoker, obestiy Previous Cardiac Procedures: ASD repair Pretest Chest Pain Characteristics: none Exercise History: Sedentary Physical Disabilities: Knees Lung Sounds: Clear to auscultation Heart Sounds: Regular Stress Test Details Test: Pharmacologic stress testing performed using 0.4 mg of regadenoson per 5 mL given IV over 10 s econds. Nuclear Acquisition: Rest Tc-99m/Stress Tc-99m 1 day Rest Isotope: Tc-99m Sestamibi. Dose: 11.5 Date: 03/20/2021 Injection Time: 0900 Stress Isotope: Tc-99m Sestamibi. Dose: 38 Date: 03/20/2021 Injection Time: 1020 HR Resting HR Supine: 76 bpm Max Heart Rate (APMHR): 153 bpm Target HR (85% APMHR): 130 bpm Max HR Achieved: 105 bpm % of APMHR: 68 Recovery HR: 86 bpm Comment: Dilt not held BP Resting BP Supine: 132/84 mmHg Max BP: 130/74 mmHg Recovery BP: 126/76 mmHg ECG Resting ECG: Atrial Fibrillation Ectopy: rare PVC Comment: RBBB Stress ECG: Atrial Fibrillation ST Change: No significant ST segment changes noted Arrhythmia: None Comment: RBBB Recovery ECG: Atrial Fibrillation Recovery ST Change: No significant ST segment changes noted Recovery Arrhythmia: APC, None, Comment: RBBB, rare PVC Clinical Rate Pressure Product: [id number] Stress ECG Conclusion 1. This is a pharmacological stress test. 2. Patient no symptoms suggestive of ischemia. 3. EKG portion of this exam is nondiagnostic. Stress Test Summary STAGE HR BP Symptoms NOTES Supine 76 132/84 1 min post Lexiscan injection 101 130/74 3 min post Lexiscan injection 96 126/80 6 min post Lexiscan injection 86 126/76 MPI Conclusion The patient's ejection fraction was 52% with stress. There were no wall motion abnormalities. There was a very small area of mixed abnormal perfusion at the apex. Given the location and degree o f abnormality, this may represent artifact Consider additional ischemic evaluation if concern remains elevated.
[2021-03-20] MEDS: Regadenoson 0.4 MG/5 ML SYR IVP (10:19)
== END 2021-03-20 02:57 ==
PROVIDERS: PCP Internal Medicine; Visit Provider Internal Medicine
DX: R06.09 Other forms of dyspnea (principal); I48.91 Unspecified atrial fibrillation; I45.10 Unspecified right bundle-branch block; I49.3 Ventricular premature depolarization; Z82.49 Family history of ischemic heart disease and other diseases of the circulatory system; I10 Essential (primary) hypertension; Z87.891 Personal history of nicotine dependence; E66.9 Obesity, unspecified; R94.39 Abnormal result of other cardiovascular function study
CPT/HCPCS: 78452; 93017; J2785

== ENCOUNTER 2021-10-09 10:16 | Outpatient (CLI) | payer BC, MEDICARE, SELFPAY ==
--- NOTE | 2021-10-09 09:45 | DI.RAD_ITS ---
Exam(s) XR KNEE LT 2V AP,LAT EXAM: XR KNEE LT 2V AP,LAT CLINICAL HISTORY: annual f/u L TKA. TECHNIQUE: 2D digital imaging was performed. COMPARISON: No exams were available for comparison FINDINGS: There is continued stable appearance of the prosthesis in the left knee with no fracture or loosening evident. No radiographic evidence of osteomyelitis. IMPRESSION: DATA REPOSITORY: RADIATION DOSE DELIVERED:
== END 2021-10-09 10:17 | disposition home or self-care (01) ==
LOC: DIORS 10:16
PROVIDERS: PCP Internal Medicine; Referring Provider Internal Medicine; Visit Provider Student in an Organized Health Care Education/Training Program
DX: Z96.652 Presence of left artificial knee joint (principal)
CPT/HCPCS: 73560

== ENCOUNTER 2021-11-24 04:27 | Outpatient (CLI) | payer BC, MEDICARE, SELFPAY ==
[2021-11-24 10:19] LABS: HCT 45.5 % (40.0-50.0); HGB 15.5 g/dL (13.5-17.5); MCH 31.7 pg (27.0-33.0); MCHC 34.1 % (32.0-36.0); MPV 10.2 fL (8.0-11.0); Platelet Count 236 10^3/uL (130-400); RBC 4.89 10^6/uL (4.36-5.78); RDW-SD 41.6 fL; WBC 8.67 10^3/uL (4.4-10.8)
[2021-11-24 11:25] LABS: BUN 22 mg/dL (7-18); CREATININE 1.1 mg/dL (0.70-1.30); Calcium 9.3 mg/dL (8.5-10.1); Chloride 103 mmol/L (98-107); Glucose 101 mg/dL (74-106); Potassium 4.2 mmol/L (3.5-5.1); Sodium 141 mmol/L (136-145)
[2021-11-24 12:55] LABS: Source Nasal/Nares
[2021-11-24 16:08] LABS: COVID-19 PCR Negative (Negative)
== END 2021-11-24 04:28 | disposition home or self-care (01) ==
LOC: LBO 04:27
PROVIDERS: PCP Internal Medicine; Visit Provider Student in an Organized Health Care Education/Training Program
DX: M25.561 Pain in right knee (principal); M17.11 Unilateral primary osteoarthritis, right knee; Z20.822 Contact with and (suspected) exposure to COVID-19; Z01.818 Encounter for other preprocedural examination; Z01.812 Encounter for preprocedural laboratory examination
CPT/HCPCS: 36415; 80048; 85027; 87635

== ENCOUNTER 2021-11-25 06:05 | Day surgery (SDC) | payer BC, MEDICARE, SELFPAY ==
--- NOTE | 2021-11-24 14:31 | W.ANESPRE ---
General Info Date of Service Date Performed: 11/25/21 Height: 5 ft 9 in Weight: 123.831 kg Body Mass Index (BMI): 40.3 Surgical Procedure: Operation Date: 11/25/21 08:10 Proposed Procedure Side Surgeon p Knee Total Arthroplasty Cementless CR Right Liam Elena MD Meds Allergies and Home Medications Allergies Allergy/AdvReac Type Severity Reaction Status Date / Time No Known Allergies Allergy Verified 11/25/21 06:21 Home Medication Medication Instructions Recorded candesartan 16 mg tablet (Atacand) 32 mg PO DAILY 01/03/14 diltiazem HCl 60 mg tablet 300 mg PO DAILY 01/03/14 (Cardizem) hydrochlorothiazide 25 mg tablet 25 mg PO DAILY 07/15/20 acetaminophen 500 mg tablet 1,000 mg PO Q8H PRN #90 tab 09/24/20 cholecalciferol (vitamin D3) 25 25 mcg PO DAILY 09/24/20 mcg (1,000 unit) capsule (Vitamin D3) potassium chloride 10 mEq 10 meq PO DAILY 09/24/20 tablet,extended release zinc 50 mg capsule 50 mg PO DAILY 09/24/20 apixaban 5 mg tablet (Eliquis) 5 mg PO BID 10/09/21 celecoxib 100 mg capsule (Celebrex) 100 mg PO BID 10/09/21 Current Visit Medications: Current Medications Generic Name Dose Route Start Last Admin Trade Name Freq PRN Reason Stop Dose Admin Acetaminophen 1,000 mg 11/25/21 06:00 Acetaminophen 500 Mg Tab PO 11/25/21 16:00 PREOP RAHEEM Celecoxib 400 mg 11/25/21 06:00 Celecoxib 200 Mg Cap PO 11/25/21 16:00 PREOP RAHEEM Gabapentin 300 mg 11/25/21 06:00 Gabapentin 300 Mg Cap PO 11/25/21 16:00 PREOP RAHEEM Tranexamic Acid 1,000 mg/ 60 mls @ 360 mls/hr 11/25/21 06:00 Sodium Chloride IVPB 11/25/21 16:00 PREOP RAHEEM Tranexamic Acid 1,000 mg/ 60 mls @ 360 mls/hr 11/25/21 06:00 Sodium Chloride IVPB 11/25/21 16:00 DIRECTED RAHEEM Ringer's Solution 1,000 mls @ 80 mls/hr 11/25/21 06:00 IV 12/18/21 23:59 INFUSION RAHEEM Cefazolin Sodium 3,000 mg/ 100 mls @ 200 mls/hr 11/25/21 06:00 Sodium Chloride IVPB 11/25/21 16:00 PREOP RAHEEM IV Miscellaneous Supplies 1 each 11/25/21 06:00 Iv Access IV 12/18/21 23:59 DIRECTED RAHEEM Sodium Chloride 0 ml 11/25/21 06:00 Normal Saline Flush 10 Ml Syr IV 12/18/21 23:59 PRN PRN Sodium Chloride 0 ml 11/25/21 06:00 Normal Saline 10 Ml Vial IJ 12/18/21 23:59 DIRECTED PRN Sterile Water 0 ml 11/25/21 06:00 Water,Injection,Sterile 10 Ml Vial IJ 12/18/21 23:59 DIRECTED PRN PFSH Active Problems Active Problems: Problem Status Onset Code Atrial fibrillation I48.91 RBBB (right bundle branch block) I45.10 Hypertension I10 Degenerative joint disease of right knee M17.11 Medical History Medical History ELIAS on CPAP Surgical History Surgical History (Updated 11/25/21 @ 06:20 by Juan Diego Rodriguez) ASD (atrial septal defect) (~1983) s/p repair of ASD H/O craniotomy Venous cerebral hemorrage. History of colonoscopy History of total left knee replacement (TKR) (09/24/20) Tobacco Smoking/Tobacco Use Status: Former Tobacco Use Alcohol Alcohol Intake: current Alcohol intake frequency: holidays/special occasions only Substance Use Substance use: Never Substance use type: does not use Vital Signs and Lab Results Vital Signs Most Recent Vital Signs in EMR: Temp Pulse Resp BP Pulse Ox 36.6 C 104 H 16 137/68 98 11/25/21 06:24 11/25/21 06:24 11/25/21 06:24 11/25/21 06:24 11/25/21 06:24 Lab Results Blood Type / Crossmatch: No Data to Display Complete Blood Count: White Blood Count 8.67 10^3/uL (4.4-10.8) 11/24/21 10:08 11/24/21 Red Blood Count 4.89 10^6/uL (4.36-5.78) 11/24/21 10:08 11/24/21 Hemoglobin 15.5 g/dL (13.5-17.5) 11/24/21 10:08 11/24/21 Hematocrit 45.5 % (40.0-50.0) 11/24/21 10:08 11/24/21 Platelet Count 236 10^3/uL (130-400) 11/24/21 10:08 11/24/21 Complete Metabolic Panel: Sodium Level 141 mmol/L (136-145) 11/24/21 10:08 11/24/21 Potassium Level 4.2 mmol/L (3.5-5.1) 11/24/21 10:08 11/24/21 Chloride Level 103 mmol/L (98-107) 11/24/21 10:08 11/24/21 Carbon Dioxide Level 26.0 mmol/L (21.0-32.0) 11/24/21 10:08 11/24/21 Blood Urea Nitrogen 22 mg/dL (7-18) H 11/24/21 10:08 11/24/21 Creatinine 1.1 mg/dL (0.70-1.30) 11/24/21 10:08 11/24/21 Estimated GFR/1.73 m2 >= 60.00 (mL/min/1.73m2) 11/24/21 10:08 11/24/21 Calcium Level 9.3 mg/dL (8.5-10.1) 11/24/21 10:08 11/24/21 Glucose Level 101 mg/dL (74-106) 11/24/21 10:08 11/24/21 Liver Function Panel: No Data to Display Coagulation Panel: No Data to Display Cardiac Panel: No Data to Display Arterial Blood Gas: No Data to Display Venous Blood Gas: No Data to Display Pancreas Panel: No Data to Display Thyroid Panel: No Data to Display Infectious Disease: Coronavirus (COVID-19)(PCR) Negative (Negative) 11/24/21 10:16 11/24/21 Coronavirus 2019 Source Nasal/Nares 11/24/21 10:16 11/24/21 Blood Cultures: No Data to Display Toxicology Panel: No Data to Display Imaging and Studies Imaging and Studies Study information below may be from another EMR and interpreted by another provider. Please see original notes in EMR for more complete details. EKG Summary: 01/2021: afib. Stress Test Summary: 03/20/21: not suggestive of ischemia. LVEF 52%, no WMA. Echocardiogram Summary: 2009: LVEF 65%, mild-moderate MR. Anesthesia Assessment and Plan Anesthesia History Personal History: No History of Anesthesia Complications Family History: No Family History of Anesthesia Complications Exercise Tolerance Exercise Tolerance: Metabolic Equivalents<4 Pertinent Negatives Pertinent Negatives: No Symptoms of GERD, No Major Cardiovascular Symptoms or Complaints and No Major Pulmonary Symptoms or Complaints Cardiac & Pulmonary Exam Cardiac Exam: Normal S1/S2 Heart Sounds and Other (Afib) Pulmonary Exam: Clear Bilateral Breath Sounds Implantable Cardiac Device Does patient have a Pacemaker or an ICD?: No Airway Exam Known Difficult Airway: No Mallampati Class: 4 Mouth Opening: Normal (> 3cm) Thyromental Distance: Greater than 3 cm Facial Hair: Full Daniel Neck Range of Motion: Full ROM Neck Circumference: Thick Teeth Condition: Normal Dentition and Loose or Chipped (Missing left molar) ASA Classification ASA Score: ASA 3 Emergency Case?: No NPO Status NPO Status: NPO Clears >2 hours, Solids >8 hours Anesthesia Plan Resuscitation Status: Full Code Anesthesia Technique: Spinal Anesthesia Airway Planned: Natural Airway Pain Management: Surgeon and patient request nerve block Monitors Used: Standard Monitors Preoperative Comments:: 65 yo male for TKA. Sig PMHx: Afib (dilt/apixaban), HTN (hctz), ELIAS. former smoker, SDH/evacuation 01/2021 - no residual, ASD. ECHO 2009: mild mod MR, EF ~65%. Previous Anes: TKA: spinal, did require phenyl gtt, OPA for obstruction. Crani: Mac 4 grade 1 .
[2021-11-25] VITALS (12 sets, daily range): BP systolic 95–145; BP diastolic 52–81; PULSE 72–104; RESP 11–20; TEMP 36.4–37.1; O2SAT 92–98; BMI 40.3
[2021-11-25] MEDS: Lactated Ringers 1,000 ML 80 ML IV (06:53)
[2021-11-25] MEDS: Celecoxib 200 MG CAP 400 MG PO (06:55)
[2021-11-25] MEDS: Acetaminophen 500 MG TAB 1000 MG PO (06:55)
[2021-11-25] MEDS: Gabapentin 300 MG CAP PO (06:55)
--- NOTE | 2021-11-25 07:19 | W.PM.DSUDISC ---
Discharge Plan Disposition Patient Disposition: HOME Condition: Good Discharge Details Reason For Visit: Right Knee DJD Attending Provider: Liam Elena Primary Care Provider: David Wallace Home Meds and New Rx's Prescriptions: New celecoxib 200 mg capsule 200 mg PO BID PRN (Reason: pain) Qty: 60 1RF docusate sodium [Colace] 100 mg capsule 100 mg PO BID PRNQty: 10 0RF pantoprazole 40 mg tablet,delayed release (DR/EC) 40 mg PO DAILY Qty: 30 0RF oxycodone 5 mg tablet 5 - 10 mg PO Q4H Qty: 24 0RF dexamethasone [Decadron] 4 mg tablet 4 mg PO DAILY Qty: 2 0RF Continued hydrochlorothiazide 25 mg tablet 25 mg PO DAILY 0RF Eliquis 5 mg tablet 5 mg PO BID 0RF candesartan [Atacand] 16 MG tablet 32 mg PO DAILY 0RF diltiazem HCl [Cardizem] 60 MG tablet 300 mg PO DAILY 0RF potassium chloride 10 mEq Tablet Extended Release 10 meq PO DAILY 0RF cholecalciferol (vitamin D3) [Vitamin D3] 25 mcg (1,000 unit) Capsule 25 mcg PO DAILY 0RF zinc 50 mg Capsule 50 mg PO DAILY 0RF acetaminophen 500 mg tablet 1,000 mg PO Q8H PRN (Reason: pain) Qty: 90 3RF Discontinued celecoxib [Celebrex] 100 mg capsule 100 mg PO BID 0RF Discharge Instructions Additional Instructions: Total Knee Discharge Instructions Activity: The most important activity is to walk. You should try to take short walks a few times a day. It is important that when resting you work on keeping the knee straight. Avoid putting a pillow behind the knee as this will encourage flexion. Work on range of motion exercises as provided by Physical Therapy. If you have the [employer] WiFi bike coming, this will be your primary tool for exercise after the knee replacement. You should use it and follow the directions for the knee. Utilize the other exercises sparingly based on your symptoms. - Start outpatient physical therapy around 2 weeks. - You should wear the CHEYANNE hose on both legs for 2 weeks. You may remove these at night. You may also use any compression sock in place of the CHEYANNE hose. - Utilize [employer] to review exercises, see videos on exercises and obtain basic information pertaining to your surgery and your recovery. Dressing: Remove the Collin wrap by 2 days after your surgery and put on the CHEYANNE stocking given to you from the hospital. Keep the surgical dressing (underneath the COLLIN wrap) in place for at least one week. After the first week it may be removed and replaced with light gauze and tape or nothing. The wound and dressing may get wet after 3 days but avoid soaking the dressing or otherwise it will need to be changed. Many people prefer covering the dressing with cling wrap (saran wrap) to minimize it from getting soaked. If it gets wet, just pat dry. If it starts to peel off then it will need to be changed. Medications: - You should take Tylenol and anti-inflammatory Celebrex as your primary pain control medications. If the Celebrex is too expensive or not covered, please call the office for another alternative (Advil/Ibuprofen or Naproxen/Aleve) - You have been prescribed a stronger pain medication Oxycodone for breakthrough pain, take as needed as prescribed. - You have also been prescribed a stomach acid reduction agent Pantoprozole to help reduce stomach acid and reflux. - You will be taking your home dose of Eliquis for DVT prevention unless instructed otherwise. - You also have been prescribed Decadron to take on post-op day #1 and #2 - If you have constipation you should take Colace or Miralax (both [id number]). It takes most people 3-4 days to have a bowel movement. Follow-up: 2 weeks If you have any acute concerns or questions, please do not hesitate to contact the office at [phone]. You may contact Dr. Elena with any questions after hours through the hospital at [phone] or on his cell phone at [phone]. Stand Alone Forms: Anesthesia Discharge Inst., Anes.Nerve Block Instructions, John Araujo (DSU) Referrals: Liam Elena MD [ [facility] STAFF PHYSICIAN] - Equipment/Supplies: Walker Activity:: Activity as Tolerated Shower/Bathe:: Cover Diet:: As Tolerated Discharge Orders Discharge Orders: Discharge Order (Routine); Ordered 11/25/21 Ordered By: Liam Elena
[2021-11-25] MEDS: ceFAZolin 3,000 MG in Normal Saline 100 ML 200 MG IVPB (07:45)
[2021-11-25] MEDS: Bupivacaine 0.25% Pres-Free 30 ML VIAL (08:20)
[2021-11-25] MEDS: Normal Saline 20 ML VIAL (08:20)
[2021-11-25] MEDS: Ketorolac 30 MG/ML VIAL (08:20)
--- NOTE | 2021-11-25 08:56 | ROE_ITS ---
Operative Note Operative Note DATE OF PROCEDURE: 11/25/21 PRE-OP DIAGNOSIS: Right Knee Osteoarthritis POST-OP DIAGNOSIS: same PROCEDURE: Right Cementless Total Knee Replacement SURGEON: Liam Elena PHOTOGRAPHIC RESTORER: Aggie Cabrales ANESTHESIA TYPE: Spinal Refer to Anesthesia Record ESTIMATED BLOOD LOSS: 50 PATHOLOGY: none sent TOURNIQUET TIME: 0 COMPLICATIONS: None Patient was transported to: PACU Patient's condition: stable Implants: 1. Depuy Attune Cementless Cruciate Retaining Femoral Component, Size 6 2. Depuy Attune Cementless Rotating Platform Tibial Component, Size 6 3. Depuy Attune 6x7 CR/RP Poly 4. Depuy Attune Patellar Component, Size 38 Indications: I have seen Reza in clinic for symptoms of knee arthritis, confirmed with radiographic findings. Reza has exhausted nonoperative methods and was having significant limitations in daily function and desired better function and less pain. I discussed the technical details of a knee replacement. I explained the risks of the procedure to include, but not limited to, bleeding, infection, pain, stiffness, fracture, damage to nerves and vessels, damage to muscles and tendons, loosening, need for repeat procedure, blood clot and cardiopulmonary demise. Despite these risks, Reza elected to proceed. Findings: There was significant signs of arthritis throughout the knee, mostly involving the medial compartment. Procedure Description: Reza was greeted in the preoperative holding area where the correct side was identified and marked. The consent was reviewed with the patient and signed. The history and physical was updated. All questions were answered. Preoperative medications were administered: Acetaminophen 1000mg, Celebrex 400mg, and Gabapentin 300mg. An adductor canal block was then administered by the anesthesia team in the PACU. Reza was taken back to the operating room. A spinal anesthestic was then administered. The patient was placed into the supine position on the operating room table. A nonsterile tourniquet was placed high onto the leg but only used for cementing. Posts were placed for positioning during the procedure. All bony prominences were well padded. Prophylactic antibiotics in the form of Cefazolin were administered. 1g of Tranxemic Acid was given intravenously within 30 minutes of incision. The right leg was then prepped with Chloraprep and draped in a standard fashion with impervious stockinette. A second prep with Chloraprep was performed prior to application of Iodine impregnated skin protection. A timeout to confirm correct identity, side and site, procedure, allergies, anesthesia, and medical concerns was performed. With the knee in some flexion, a midline incision was made overlying the knee. Full thickness skin flaps were raised once the extensor mechanism was enc ountered. These were raised medially and laterally. Any bleeding was controlled with electrocautery. Once the extensor mechanism was fully exposed, a medial parapatellar arthrotomy was performed in a flexed position. All bleeding from the arthrotomy and the geniculate arteries was coagulated. A medial subperiosteal peel was performed with electrocautery to the midcoronal plane. Due to the significant varus deformity the entire medial tibial plateau was exposed. The fat pad was removed while keeping the patellar tendon protected. The anterior distal femur synovium was removed for later visualization. The ACL and PCL were resected and the anterior horn of the lateral meniscus was transected. The knee was then flexed with the patella everted. Large osteophytes from the tibia were removed. Large osteophytes from the femur were removed. Using a step drill, and based on preoperative templating, the femoral canal was entered. This was done with a step drill without any difficulty. The intramedullary distal femoral cut guide was inserted, set to a 5 degree valgus cut and 9mm cut thickness. The distal femoral cut guide was then held in position and pinned. With the soft tissues protected, the distal cut was performed. This was passed over a few times to ensure a planar cut. I then turned attention to the tibia. The extramedullary guide was placed onto the leg. The distal aspect was slid medial to adjust for position of center of ankle and stay in line with shaft of the tibia. Approximately 3-5 degrees of posterior slope was kept in the proximal cutting guide. The center of the guide was aligned with the PCL. The stylus was used to assess cut thickness. The medial side, most involved side, was set for a 4mm cut. This was then held in position and pinned into place with 2 additional pins and a cross pin for stability. The medial and lateral collateral ligaments were protected and the cut was performed. With this completed, it was assessed and noted to be of appropriate dimensions. The guide was removed. A spacer block was inserted and the knee was brought into extension. The 6mm spacer block provided full extension, without hyperextension and with stability of both the medial and lateral collateral ligaments was assessed. The pins from the femur and the tibia were then removed. The distal femur was then sized. The anterior stylus was placed onto the lateral ridge of the anterior femur. This indicated a size 6 femur. The external rotation of the guide was adjusted to 3 degrees to match the epicondylar axis, perpendicular to Cannon?s line. The 4-in-1 cutting guide was the placed. The posterior medial femur cut was evaluated and appeared of good thickness. The spacer block was inserted underneath the cutting guide and stability was confirmed in 90 degrees of flexion. An juliana wing was used to confirm appropriate position of the anterior cut to avoid notching. This cutting guide was ensured to be flush on the cut surface and then pinned into place with headed pins. While protecting the soft tissues, quad tendon, and collateral ligaments, the anterior and posterior cuts were performed with a saw. The central two pins were removed and the posterior and anterior chamfers were cut next. The notch-cutting guide was placed. This was pinned to lateralize the femoral component as much as possible while keeping it flush on the cut surface. This was then pinned into position. A reciprocating saw was used to make the notch cut. A rasp smoothed the cut surfaces. The medial and lateral menisci were removed. A trial femoral component was then inserted, impacted down to the cut surfaces, and the lug holes were drilled. A provisional trial tibial component was placed and the knee was brought through range of motion. The polyethylene was trialed until there was good flexion and extension with excellent stability to the medial and lateral collaterals. The patella was tracking without thumbs. A size 7mm polyethylene component provided the best range of motion and stability with less than 2mm gapping with medial and lateral stress and full extension without significant hyperextension. The tibial cut surface was fully exposed. The tibia was then sized as a 6. The tibia had been previously marked during trialing to correspond to the center of the tibial component to help with rotation. The trial was aligned to this liliana, approximately rotated to the medial 1/3rd of the tibial tubercle. The trial was pinned into place. The tibia was prepared with a reamer and a keel punch and lug holes. The knee was then brought into extension and the patella was measured as 25mm. Using the patellar clamp and cut guide, this was resected to a flat surface with at least 13mm of thickness remaining. The size 38 patella fit the best. This was oriented and then clamped into position. The lugs were drilled. The trial components were removed. The final components were opened on the back table. The periosteal and capsular tissues, especially posteriorly, around the knee were then systematically injected with a periarticular cocktail consisting of 50cc 0.25% Marcaine, 30mg Ketorolac, 20cc of Exparal and 50cc of injectable saline. The knee was thoroughly irrigated with a pulse lavage and dried. Irrisept was also used to irrigate the tissues. On the back table, with the implants opened, the cement was mixed. One batch of high viscosity cement was prepared with vacuum assistance. After the cement was ready a small amount was placed on the cut surface of the patella and the patellar button was clamped into position and held. While the cement was hardening, the cementless knee components were placed. Starting with the tibial component, the tibia was subluxed anteriorly and the lug holes of the component were lined up. The tibia was then impacted with an impactor and mallet until the tibial component was in contact with the tibia. The final polyethylene component was inserted. Then, the femoral component was inserted. The lug holes were aligned and the component was impacted into position. The knee was irrigated with Irrisept chlorhexadine solution. This was allowed to sit in the knee for 3 minutes. After the cement had finally cured, approximately 15min, the clamp was removed from the patella and the knee was taken through range of motion. The patella was tracking with a no-thumbs technique. The capsule was then reapproximated with a No. 1 Vicryl at multiple locations. The capsule was finally closed with a No. 2 Stratafix, barbed suture. The second dosing of 1g TXA was started. Deep tissues were then reapproximated with 0 Vicryl and 2-0 Vicryl. The skin was closed with a running 3-0 Monocryl in a subcuticular fashion. This was reinforced with skin glue. A Mepilex silver dressing was applied along with a hoft-pa-kngfa LULU wrap. A CryoCuff was applied. Reza was transferred to the hospital bed without difficulty an suffering no apparent complication. Reza has a good prognosis. Physical therapy will start today and without restrictions, weight-bearing as tolerated. His home regimen of Apixaban will be used for DVT prophylaxis.
--- NOTE | 2021-11-25 09:45 | W.ANESPOSTOP ---
Postoperative Evaluation Date, Time and Location Date Performed: 11/25/21 Time Performed: 09:45 Patient Location: PACU Vital Signs Most Recent Imported Vital Signs: Most Recent Vital Signs Temp Pulse Resp BP Pulse Ox 36.4 C L 74 18 102/52 L 98 11/25/21 09:35 11/25/21 09:35 11/25/21 09:35 11/25/21 09:35 11/25/21 09:35 Pain Score Most Recent Pain Score: Most Recent Pain Score Pain Level 0 11/25/21 07:11 Assessment Mental Status: Awake (Alert & Oriented to Patient Baseline) Airway and Respiratory Function: Patent airway with normal (patient baseline) respiratory exam Cardiovascular Function: Hemodynamically Stable Hydration Status: Adequately Hydrated Nausea & Vomiting: No Nausea or Vomiting Pain: Pt. Denies Any Pain Peripheral Nerve Block: Regional nerve block not resolved at time of post operative discharge
[2021-11-25] MEDS: ePHEDrine 25 MG/5 ML Syringe IVP (09:47)
--- NOTE | 2021-11-25 10:45 | PT.INIE ---
Date of service: 11/25/21 Time of Service: 10:45 PT Notes Visit Reasons: Right Knee DJD Physical Therapy Inpatient Initial Evaluation Date: 11/25/2021 Referring Doctor: Liam Elena MD PT Orders: PT CONSULT: Status post Ortho surgery.? Status post right TKA. Precautions: Fall. Standard.? WBAT on right LE. Patient Profile/Admitting Diagnosis: Cr is a 64-year-old male with degenerative joint disease of the right knee and is status post right total knee arthroplasty on postoperative day 0. PMHX: All Active Problems?(Updated 11/19/21 @ 11:49 by JACKSON Dale) Atrial fibrillation (Chronic) RBBB (right bundle branch block) (Acute) Hypertension (Chronic) Degenerative joint disease of right knee (Chronic) Medical History?(Updated 11/19/21 @ 11:49 by JACKSON Dale) ELIAS on CPAP Surgical History?(Updated 11/19/21 @ 11:49 by JACKSON Dale) ASD (atrial septal defect) (~1983) s/p repair of ASDHistory of colonoscopy History of total left knee replacement (TKR) (09/24/20) Social History/Home Situation: Lives with in a private home with one half-step to get into the house.? Independent with all aspects of ADLs prior to surgery.? Has had no falls in the past 12 months. Equipment Owned/DME: 4WW, FWW, SPC, MARLEN Subjective: Agreeable to PT consult.? Complained of stiffness in the left knee which resolved with movement and ambulation. Objective: General Observation: High BMI.? Impulsive.? LULU wraps on right LE.? Cryo/Cuff to right LE. Mental Status: Alert and oriented x4 Pain: Denies ROM: Right Upper Extremity: ? Shoulder Flexion WFL. Shoulder abduction WFL. Elbow flexion WFL. Wrist flexion WFL. Opening and closing of hand WFL. Left Upper Extremity:? Shoulder Flexion WFL. Shoulder abduction WFL. Elbow flexion WFL. Wrist flexion WFL. Opening and closing of hand WFL. Right Lower Extremity: Hip flexion WFL. Hip abduction WFL. Knee flexion 0 degrees to 100 degrees.?Knee extension 0 degrees. Ankle dorsiflexion WFL. Ankle plantarflexion WFL. Left Lower Extremity: Hip flexion WFL. Hip abduction WFL. Knee flexion WFL. Ankle dorsiflexion WFL. Ankle plantarflexion WFL. Strength: Right Upper Extremity: Shoulder flexors 5/5. Shoulder abductors 5/5. Elbow flexors 5/5. Elbow extensors 5/5. Curriculum Development Coordinator strong. Left Upper Extremity: Shoulder flexors 5/5. Shoulder abductors 5/5. Elbow flexors 5/5. Elbow extensors 5/5. Curriculum Development Coordinator strong. Right Lower Extremity: Hip flexors 4/5. Hip abductors 5/5. Knee flexors 3-/5. Knee extensors 4-/5. Ankle dorsiflexors 5/5. Ankle plantarflexors 5/5. Left Lower Extremity: Hip flexors 5/5. Hip abductors 5/5. Knee flexors 4/5. Knee extensors 4/5. Ankle dorsiflexors 5/5. Ankle plantarflexors 5/5. Sensation: Intact as to pain and pressure on bilateral lower extremities. Bed Mobility/Transfers: Supine to sit supervision Sit to stand standby assist Stand to sit standby assist Bed to chair standby assist Gait: Guided patient through level surface ambulation of 100 feet using the front wheeled walker with standby assist of PT and nurse Juan Diego.? Required moderate verbal cueing to avoid speed walking and reduce fall risk. Balance: Static Sitting: Normal Dynamic Sitting: Normal Static Standing: Fair Dynamic Standing: Fair Special Tests: Mobility Limitations Standardized Measure [facility] 6 clicks Basic Mobility Inpatient Short Form: Raw Score: 24 ? CMS Score: 0% deficit? ? ? Informed Consent/Education:? Patient instructed in purpose of PT consult.? Education and training on initial set of exercises that can be done at home has been completed with patient. Assessment: Reza requires the use of a front wheeled walker to maximize safety and reduce fall risk at home.? He will have the support of his as he recovers.? He will benefit from outpatient PT services in order to facilitate return to independent and unassisted community ambulation.? Has good understanding of HEP given to him in a packet. Patient presents with clinical signs and symptoms consistent with current/admitting diagnoses that have resulted to mobility limitations, gait instability, generalized weakness, and impairment of motor control as demonstrated by the following impairment level findings: 1.? Decreased strength to right knee major muscle groups 2.? Impaired standing balance 3.? Limitation of joint range of motion in right knee Impairments are contributing to the following functional limitations: 1.? Inability to safely ambulate without assistive device 2.? Increase completion time for mobility ADL performance 3.? Increased fall risk Patient is assessed as a [id number] moderate complexity based on the following: History: 64-year-old male with impairment level findings, functional limitations, and past medical history as indicated above Examination: Demonstrable impairment in strength, balance, and mobility level with underlying impairments and functional limitations as documented above Presentation:Evolving Decision Makin moderate complexity Goals: N/A.? PT evaluation and 1 treatment session only for functional mobility training using the front wheeled walker and for HEP instruction. Plan of Care/Treatment Plan: N/A.? PT evaluation and 1 treatment session only for functional mobility training using the front wheeled walker and for HEP instruction. DISCHARGE RECOMMENDATIONS: [] Home with no services [] [] Home with services [specify] [X] Home with outpatient PT. Home when medically cleared by orthopedic surgeon.? Will benefit from outpatient PT services in order to facilitate return to independent and unassisted community ambulation. [] SNF for continued rehabilitation [] [] Lead Principal Technical Architect Care [] [] SNF versus LTC based on ability to participate and progress [] TREATMENT CODE/TIME: 43370 x 22 minutes beginning at 10:45 AM. Thank you for the opportunity to participate in the care of this patient. Zuly Albarran PT, DPT, CLT [facility] [place], [place]
--- NOTE | 2021-11-26 09:23 | W.ANESNERVE ---
Nerve Block Single Injection Procedure Date and Time Date Performed: 11/25/21 Procedure Start: 07:14 Location Where Procedure Performed Procedure Location: Day Surgery Unit Reason Performed: Postoperative Analgesia Requesting Provider: Liam Elena Timeout Performed Timeout Performed: Yes Monitoring Used ECG, Blood Pressure and SpO2 Sterility Sterility: Hand Hygiene, Surgical Cap, Surgical Mask, Sterile Gloves and Chlorhexidine Sedation Given During Procedure Sedation Given (Indicate Dose Given): Versed IV Dose:: 2 mg Patient Mental Status Patient Mental Status: Awake Nerve Block 1st Nerve Block: Laterality: Right Block Type: Adductor Canal Needle / Catheter Used: 100mm SonoPlex II Local Anesthetic Bolus (Indicate Dose Given): Lidocaine used for local infiltration of skin, Injected in 3-5ml increments after negative blood aspiration and Bupivacaine 0.375% Dose:: 10 mL Additives (Indicate Dose Given): None Ultrasound: Sterile probe cover and gel used Ultrasound Image Saved?: Yes Nerve Stimulator: Not Used Paresthesia: None Procedure Tolerated: No Complications Procedure Outcome: Successful Performed By: Javier Vazquez
== END 2021-11-25 12:15 | disposition home or self-care (01) ==
PROVIDERS: PCP Internal Medicine; Visit Provider Student in an Organized Health Care Education/Training Program
PROC: (CPT 27447; principal; 2021-11-25 08:00)
DX: M17.11 Unilateral primary osteoarthritis, right knee (principal); I48.91 Unspecified atrial fibrillation; I45.10 Unspecified right bundle-branch block; I10 Essential (primary) hypertension; Z79.01 Long term (current) use of anticoagulants
CPT/HCPCS: 27447; 97162; J0690; J1100; J1885; J2001; J2250; J2370; J2405; J2704

== ENCOUNTER 2021-12-08 10:49 | Outpatient (CLI) | payer BC, MEDICARE, SELFPAY ==
--- NOTE | 2021-12-08 10:15 | DI.RAD_ITS ---
Exam(s) XR STANDING ALIGNMENT EXAM: XR STANDING ALIGNMENT CLINICAL HISTORY: 1ST POST OP R TKA. TECHNIQUE: 2D digital imaging was performed. COMPARISON: CR XR STANDING ALIGNMENT from 10/10/2020 FINDINGS: Compared to 10/10/2020 there is now evident placement of a right knee prosthesis appears to be in sat isfactory position and alignment. There are now bilateral knee prostheses without evidence of obviou s loosening.. Mild degenerative changes the right hip. Ankles unremarkable. No osseous lesions. IMPRESSION: DATA REPOSITORY: RADIATION DOSE DELIVERED:
--- NOTE | 2021-12-08 10:15 | DI.RAD_ITS ---
Exam(s) XR KNEE RT 1V EXAM: XR KNEE RT 1V CLINICAL HISTORY: 1ST POST OP R TKA. TECHNIQUE: 2D digital imaging was performed. COMPARISON: CR XR KNEE LT 2V AP,LAT from 10/09/2021 FINDINGS: Single lateral view of the right knee There is satisfactory position alignment of components of recently placed prosthesis. No fracture or loosening evident. IMPRESSION: DATA REPOSITORY: RADIATION DOSE DELIVERED:
== END 2021-12-08 10:50 | disposition home or self-care (01) ==
LOC: DIORS 10:49
PROVIDERS: PCP Internal Medicine; Visit Provider Student in an Organized Health Care Education/Training Program
DX: Z96.651 Presence of right artificial knee joint (principal); Z47.1 Aftercare following joint replacement surgery; M16.11 Unilateral primary osteoarthritis, right hip
CPT/HCPCS: 73560; 77073

== ENCOUNTER 2022-03-03 02:29 | Outpatient (CLI) | payer BC, MEDICARE, SELFPAY ==
[2022-03-03 07:35] LABS: Abs Immature Grans 0.05 10^3/uL (0.0-0.06); Absolute Basophil Count 0.03 10^3/uL (0.0-0.2); Absolute Eosinophil Count 0.22 10^3/uL (0.0-0.7); Absolute Lymphocyte Count 1.93 10^3/uL (1.2-3.4); Absolute Monocyte Count 0.66 10^3/uL (0.1-0.8); Absolute Neutrophil Count 4.16 10^3/uL (1.2-6.7); Basophils % 0.4; Eosinophils % 3.1; HCT 43.3 % (40.0-50.0); HGB 14.5 g/dL (13.5-17.5); Immature Grans % 0.7; Lymphocytes % 27.4; MCH 31.6 pg (27.0-33.0); MCHC 33.5 % (32.0-36.0); MCV 94 fL (80-95); MPV 9.9 fL (8.0-11.0); Monocytes % 9.4; Platelet Count 195 10^3/uL (130-400); RBC 4.59 10^6/uL (4.36-5.78); RDW 12.1 % (11.8-14.1); RDW-SD 42.2 fL; WBC 7.05 10^3/uL (4.4-10.8)
[2022-03-03 08:32] LABS: ALT 33 U/L (16-63); AST 20 U/L (15-37); Alkaline Phosphatase 81 U/L (46-116); Anion Gap 10.2 mmol/L (3-11); BUN 23 mg/dL (7-18); Bilirubin, Total 0.3 mg/dL (0.2-1.0); CO2 25.8 mmol/L (21.0-32.0); CREATININE 1.1 mg/dL (0.70-1.30); Calcium 8.8 mg/dL (8.5-10.1); Calculated LDL 84 mg/dL (<100); Chloride 105 mmol/L (98-107); Cholesterol 153 mg/dL (<200); Glucose 97 mg/dL (74-106); HDL Cholesterol 55 mg/dL (40-60); Sodium 141 mmol/L (136-145); TSH (W/Ref FT4) 2.03 uIU/mL (0.36-3.74); Total Protein 7.2 g/dL (6.4-8.2); Triglyceride 74 mg/dL (<150)
== END 2022-03-03 02:30 | disposition home or self-care (01) ==
LOC: LBO 02:29
PROVIDERS: PCP Internal Medicine; Visit Provider Internal Medicine
DX: I10 Essential (primary) hypertension (principal); Z12.5 Encounter for screening for malignant neoplasm of prostate
CPT/HCPCS: 36415; 80053; 80061; 84154; 84443; 85025

== ENCOUNTER → 2023-11-25 02:32 | Outpatient (CLI) | payer OTHER, SELFPAY ==
[2023-11-25] MEDS: Normal Saline - Diluent 50 ML VIAL IJ (11:18)
[2023-11-25] MEDS: Omnipaque 350 MG/ML 500 ML BTL-Imaging package 70 ML IJ (11:19)
--- NOTE | 2023-11-25 11:30 | DI.CT_ITS ---
Exam(s) CT CHEST W EXAM: CT CHEST W CLINICAL HISTORY: DYSPNEA,R06.00,LINGULAR OPACITY. TECHNIQUE: Multi planar reconstructions were performed. CONTRAST MATERIAL: Omnipaque 350; 75 cc COMPARISON: None. FINDINGS: CHEST: LUNGS: There is mildly decreased left hemithoracic volume. Mild pleural thickening is noted posterio rly in the left lung. No ominous masses nor lung nodules evident although the pleural thickening is slightly more prominent over the superior segment of the left lower lobe. There is also some pericar diac fat extension on the left side in the region of the lingular segment as well as mild benign-appe aring increased subpleural markings in the lingular segment left lung. Right lung is clear. No pleu ral effusions on either side. No findings in the trachea and mainstem bronchi. No bronchiectasis. MEDIASTINUM: There is no hilar nor mediastinal adenopathy. Visualized thyroid unremarkable. CARDIAC: Are sternotomy wires. Heart size upper normal. No pericardial effusion. Caliber of thorac ic aorta is normal and there is no evidence of aortic dissection. VISUALIZED UPPER ABDOMEN:There are no significant adrenal masses. Partially included benign cyst in the lateral cortex of the right kidney. OSSEOUS: No significant osseous lesions.No fractures.. IMPRESSION: 1. Previous sternotomy. Upper normal heart size. No aortic dissection nor pericardial effusion. 2. Mildly decreased left hemithoracic volume and benign-appearing left lung findings as described abo ve. No pleural effusions on either side. RADIATION DOSE DELIVERED: Total DLP DATA REPOSITORY: All CT scans at this facility are submitted to the National Radiology Data Registry (NRDR) Dose Index Registry (DIR) with the [employer] ([employer]). RADIATION OPTIMIZATION: All CT scans at this facility use at least one of these dose optimization te chniques: automated exposure control; mA and/or kV adjustment per patient size (includes targeted exa ms where dose is matched to clinical indication); or iterative reconstruction.
== END ==
PROVIDERS: PCP Internal Medicine; Visit Provider Internal Medicine
DX: R06.00 Dyspnea, unspecified (principal); R91.8 Other nonspecific abnormal finding of lung field
CPT/HCPCS: 71260

== ENCOUNTER 2025-07-19 03:36 | Outpatient (CLI) | payer MEDICARE, SELFPAY ==
[2025-07-19 07:35] LABS: Abs Immature Grans 0.04 10^3/uL (0.0-0.06); HCT 45.2 % (40.0-50.0); HGB 14.9 g/dL (13.5-17.5); Immature Grans % 0.7 %; MCH 31.0 pg (27.0-33.0); MCHC 33.0 % (32.0-36.0); MCV 94 fL (80-95); MPV 9.9 fL (8.0-11.0); Platelet Count 200 10^3/uL (130-400); RBC 4.80 10^6/uL (4.36-5.78); RDW 12.4 % (11.8-14.1); RDW-SD 42.8 fL; WBC 5.88 10^3/uL (4.4-10.8)
[2025-07-19 08:41] LABS: ALT 40 U/L (16-63); AST 18 U/L (15-37); Albumin 4.2 g/dL (3.4-5.0); Alkaline Phosphatase 81 U/L (46-116); Anion Gap 8.4 mmol/L (3-11); BUN 18 mg/dL (7-18); Bilirubin, Total 0.7 mg/dL (0.2-1.0); CO2 28.6 mmol/L (21.0-32.0); Calcium 9.3 mg/dL (8.5-10.1); Chloride 103 mmol/L (98-107); Estimated GFR 71.77 (mL/min/1.73m2); Glucose 99 mg/dL (74-106); Potassium 4.0 mmol/L (3.5-5.1); Sodium 140 mmol/L (136-145); Total Protein 7.8 g/dL (6.4-8.2)
[2025-07-19 09:00] LABS: Calculated LDL 86 mg/dL (<100); Cholesterol 156 mg/dL (<200); HDL Cholesterol 53 mg/dL (>or=40); Triglyceride 87 mg/dL (<150)
[2025-07-20 09:35] LABS: PSA, Screening 4.0 ng/mL (<=6.5)
== END 2025-07-19 03:37 | disposition home or self-care (01) ==
PROVIDERS: PCP Internal Medicine; Visit Provider Internal Medicine
DX: Z13.220 Encounter for screening for lipoid disorders (principal); I10 Essential (primary) hypertension
CPT/HCPCS: 36415; 80053; 80061; 84153; 85025